=== PATIENT | female | born 1990 | race Caucasian/White ===

== ENCOUNTER 2017-07-04 10:09 | Observation (INO) | payer OTHER, SELFPAY ==
[2017-07-04 10:25] VITALS: BP 129/79; PULSE 71; TEMP 37.2; O2SAT 100
[2017-07-04 10:51] LABS: Add Manual Diff / Slide Review NO; Basophils Percent Auto 0.6 % (0-2); Eosinophils Percent Auto 5.2 % (2-4); Hematocrit 35.9 % (36-46); Hemoglobin 11.9 g/dL (12.0-16.0); Lymphocytes Percent Auto 32.9 % (25-40); Mean Corpuscular HGB Conc 33.2 % (30-36); Mean Corpuscular Hemoglobin 27.2 PG (26-34); Mean Corpuscular Volume 81.8 fL (80-100); Monocytes Percent Auto 9.4 % (3-14); Neutrophils Absolute Auto 2600 /uL (3000-5900); Neutrophils Percent Auto 51.9 % (50-75); Platelet Count 397 X10^3/uL (150-400); Red Blood Cell Count 4.39 X10^6/uL (4.0-5.2); Red Cell Distribution Width 14.8 % (11.6-14.8)
[2017-07-04 11:02] LABS: Aspartate Aminotransferase 43 IU/L (14-36); BUN Creatinine Ratio 12.9 (6-22); Blood Urea Nitrogen 9 mg/dL (7-17); Estimated Glomerular Filt Rate > 60.0 mL/min (>60); Uric Acid 7.1 mg/dL (2.5-6.2)
[2017-07-04 13:45] VITALS: BP 130/81; PULSE 65; RESP 16; TEMP 37; O2SAT 100
[2017-07-04 15:25] VITALS: BP 119/87; PULSE 70; TEMP 37; O2SAT 100
--- NOTE | 2017-07-04 17:04 | PC.NURSE ---
1400 Dr. Gallardo rounded on patient for spinal headache. Recommended fiorcet. Patient declined blood patch during his round.
--- NOTE | 2017-07-04 17:14 | PM.CN ---
History of Present Illness Date Patient Seen: 07/04/17 Time Patient Seen: 14:00 Chief complaint: OBSERVATION Reason for consult: Postural Headache Narrative: Pt is a 26 y/o who is s/p c section x one week with a postural headache. C section was performed under a Spinal anesthetic. She is also being worked up for a post- pre-eclempsia condition which may also contributed to a the clinical picture but the history is definitely consistent with a post dural puncture headache. [facility] Surgical History Status post delivery (08/07/11) Family History Father Age: 50 Hypertension High cholesterol Mother Age: 55 Skin cancer Grandmother Age: 71 Diabetes mellitus Social History household members: spouse and children Smoking Status: Never smoker alcohol intake: never Meds Home Medications Medication Instructions Recorded Confirmed Type vit-iron fum-folic ac 1 cap PO QDAY #0 02/10/17 06/26/17 History [Mynatal] levothyroxine [Synthroid] 0.2 mg OR Q DAY #30 tab 04/21/17 06/26/17 Rx morphine 15 mg PO Q3-4H PRN #30 tab 06/28/17 Rx Allergies Allergy/AdvReac Type Severity Reaction Status Date / Time tramadol [TRAMADOL] Allergy Severe anaphylaxis Verified 06/08/17 00:24 amoxicillin [From AUGMENTIN] Allergy Mild itching Verified 06/08/17 00:24 clavulanic acid Allergy Mild itching Verified 06/08/17 00:24 [From AUGMENTIN] Sulfa (Sulfonamide Allergy Mild itching Verified 06/08/17 00:24 Antibiotics) [SULFA (SULFONAMIDE ANTIBIOTICS)] hydrocodone [HYDROCODONE] AdvReac Mild nausea Verified 06/08/17 00:24 oxycodone [OXYCODONE] AdvReac Mild nausea Verified 06/08/17 00:24 Review of Systems Review of Systems grossly normal neuro exam. CN's wnl. AAOx3 No motor deficits. Pain is sometimes worsened when turning head side to side. Worse upright but improves laying flat. All systems reviewed & are unremarkable except as noted in HPI and below Exam Vital Signs (past 8 hours): Vital Signs - 8 hr 07/04/17 10:25 07/04/17 15:25 Temperature 99.0 F 98.6 F Pulse Rate 71 70 Blood Pressure 129/79 H 119/87 H Pulse Oximetry 100 100 Pulse Oximetry 100 Const General: cooperative Orientation: alert and oriented x3 Objective Labs Result Diagrams: 07/04/17 10:35 07/04/17 10:30 Labs: Laboratory Results - last 24 hr 07/04/17 07/04/17 10:30 10:35 WBC 5.0 RBC 4.39 Hgb 11.9 L Hct 35.9 L MCV 81.8 MCH 27.2 MCHC 33.2 RDW 14.8 Plt Count 397 Neut % (Auto) 51.9 Lymph % (Auto) 32.9 [place] % (Auto) 9.4 Eos % (Auto) 5.2 H Baso % (Auto) 0.6 Neut # (Auto) 2600 L BUN 9 Creatinine 0.70 Estimated GFR > 60.0 BUN/Creatinine Ratio 12.9 Uric Acid 7.1 H AST 43 H Assessment & Plan Plan: Plan: We discussed that she does indeed have symptoms of a post dural puncture headache and that untreated will likely resolve on its own. She can try a course of Fiorcet. She didn't seem motivated to try an epidural blood patch at this time but I explained what that was and the success rate of the procedure. She is being admitted overnight during her work up for pre-eclempsia and will try Fiorcet overnight.
--- NOTE | 2017-07-04 17:23 | P.CONS_ITS ---
History of Present Illness Date Patient Seen: 07/04/17 Time Patient Seen: 14:00 Chief complaint: OBSERVATION Reason for consult: Postural Headache Narrative: Pt is a 26 y/o who is s/p c section x one week with a postural headache. C section was performed under a Spinal anesthetic. She is also being worked up for a post- pre-eclempsia condition which may also contributed to a the clinical picture but the history is definitely consistent with a post dural puncture headache. [facility] Surgical History Status post delivery (08/07/11) Family History Father Age: 50 Hypertension High cholesterol Mother Age: 55 Skin cancer Grandmother Age: 71 Diabetes mellitus Social History household members: spouse and children Smoking Status: Never smoker alcohol intake: never Meds Home Medications Medication Instructions Recorded Confirmed Type vit-iron fum-folic ac 1 cap PO QDAY #0 02/10/17 06/26/17 History [Mynatal] levothyroxine [Synthroid] 0.2 mg OR Q DAY #30 tab 04/21/17 06/26/17 Rx morphine 15 mg PO Q3-4H PRN #30 tab 06/28/17 Rx Allergies Allergy/AdvReac Type Severity Reaction Status Date / Time tramadol [TRAMADOL] Allergy Severe anaphylaxis Verified 06/08/17 00:24 amoxicillin [From AUGMENTIN] Allergy Mild itching Verified 06/08/17 00:24 clavulanic acid Allergy Mild itching Verified 06/08/17 00:24 [From AUGMENTIN] Sulfa (Sulfonamide Allergy Mild itching Verified 06/08/17 00:24 Antibiotics) [SULFA (SULFONAMIDE ANTIBIOTICS)] hydrocodone [HYDROCODONE] AdvReac Mild nausea Verified 06/08/17 00:24 oxycodone [OXYCODONE] AdvReac Mild nausea Verified 06/08/17 00:24 Review of Systems Review of Systems grossly normal neuro exam. CN's wnl. AAOx3 No motor deficits. Pain is sometimes worsened when turning head side to side. Worse upright but improves laying flat. All systems reviewed & are unremarkable except as noted in HPI and below Exam Vital Signs (past 8 hours): Vital Signs - 8 hr 3 07/04/17 10:25 07/04/17 15:25 Temperature 99.0 F 98.6 F Pulse Rate 71 70 Blood Pressure 129/79 H 119/87 H Pulse Oximetry 100 100 Pulse Oximetry 100 Const General: cooperative Orientation: alert and oriented x3 Objective Labs Result Diagrams: 07/04/17 10:35 07/04/17 10:30 Labs: Laboratory Results - last 24 hr 07/04/17 07/04/17 10:30 10:35 WBC 5.0 RBC 4.39 Hgb 11.9 L Hct 35.9 L MCV 81.8 MCH 27.2 MCHC 33.2 RDW 14.8 Plt Count 397 Neut % (Auto) 51.9 Lymph % (Auto) 32.9 [place] % (Auto) 9.4 Eos % (Auto) 5.2 H Baso % (Auto) 0.6 Neut # (Auto) 2600 L BUN 9 Creatinine 0.70 Estimated GFR > 60.0 BUN/Creatinine Ratio 12.9 Uric Acid 7.1 H AST 43 H Assessment & Plan Plan: Plan: We discussed that she does indeed have symptoms of a post dural puncture headache and that untreated will likely resolve on its own. She can try a course of Fiorcet. She didn't seem motivated to try an epidural blood patch at this time but I explained what that was and the success rate of the procedure. She is being admitted overnight during her work up for pre-eclempsia and will try Fiorcet overnight.
[2017-07-04 19:38] VITALS: BP 128/73; PULSE 60; RESP 18; TEMP 37.2; O2SAT 98
[2017-07-04] MEDS: BUTALB/APAP/CAFFEINE 50/325/40 TABLET 1 EACH PO (19:56)
[2017-07-05 00:12] VITALS: BP 98/61; PULSE 53; RESP 16; TEMP 36.7; O2SAT 98
[2017-07-05] MEDS: BUTALB/APAP/CAFFEINE 50/325/40 TABLET 1 EACH PO (04:09)
[2017-07-05 04:11] VITALS: BP 124/85; PULSE 69; RESP 15; TEMP 36.8
--- NOTE | 2017-07-05 04:20 | PC.NURSE ---
Patient was sleeping when entered room, Holding infant in her arms, pain meds given, patient going back to sleep
[2017-07-05 06:58] LABS: Add Manual Diff / Slide Review NO; Basophils Percent Auto 1.1 % (0-2); Eosinophils Percent Auto 4.3 % (2-4); Hematocrit 35.8 % (36-46); Hemoglobin 11.8 g/dL (12.0-16.0); Lymphocytes Percent Auto 29.9 % (25-40); Mean Corpuscular HGB Conc 33.1 % (30-36); Mean Corpuscular Hemoglobin 27.2 PG (26-34); Mean Corpuscular Volume 82.2 fL (80-100); Monocytes Percent Auto 8.3 % (3-14); Neutrophils Absolute Auto 2900 /uL (3000-5900); Neutrophils Percent Auto 56.4 % (50-75); Platelet Count 397 X10^3/uL (150-400); Red Blood Cell Count 4.35 X10^6/uL (4.0-5.2); Red Cell Distribution Width 14.3 % (11.6-14.8); White Blood Cell Count 5.1 X10^3/uL (4.5-11.0)
[2017-07-05 07:04] LABS: Alanine Aminotransferase 47 IU/L (9-52); Aspartate Aminotransferase 32 IU/L (14-36); Uric Acid 6.5 mg/dL (2.5-6.2)
[2017-07-05 07:47] VITALS: BP 128/82; PULSE 68; RESP 16; TEMP 37; O2SAT 98
[2017-07-05] MEDS: LEVOTHYROXINE 100 MCG TABLET 200 MCG PO (08:22)
[2017-07-05 10:23] VITALS: BP 128/82; PULSE 68; RESP 16; TEMP 37
== END 2017-07-05 12:08 | disposition home or self-care (01) ==
PROVIDERS: Admitting Provider Obstetrics & Gynecology; PCP Obstetrics & Gynecology; Visit Provider Obstetrics & Gynecology
DX: G97.1 Other reaction to spinal and lumbar puncture (principal); R51 Headache
CPT/HCPCS: 36415; 84450; 84460; 84550; 85025; 85049; G0378; G0379

== ENCOUNTER 2017-08-23 14:32 | Emergency (ER) | payer OTHER, SELFPAY ==
[2017-08-23 14:35] VITALS: BP 139/89; PULSE 63; RESP 14; TEMP 36.2; O2SAT 99; BMI 32.4
[2017-08-23 16:59] VITALS: BP 134/75; PULSE 57; RESP 16; O2SAT 98
--- NOTE | 2017-08-23 17:01 | ED.GENADULT ---
HPI - General Adult <JAMES Gama - Last Filed: 08/23/17 21:47> General Chief complaint: Hypertension Stated complaint: high blood pressure and bloody nose Time Seen by Provider: 08/23/17 17:00 History of Present Illness HPI narrative: A 27-year-old female here for complaint of having elevated blood pressure over the past couple of weeks. She was seen by her primary care provider for this a couple weeks ago and and was requested that she monitor her blood pressure and follow back up with primary care provider. She reports that her blood pressure has been on and off elevated over the past couple of weeks. She states she has had on and off headaches during the same timeframe. No fevers no chills. She states she had nosebleed earlier today that lasted about 10 min power this is fully resolved. She denies any stressors or relievers of the headache. She is currently 7 weeks she denies any vaginal discharge or bleeding. She denies any chest pain or shortness of breath. No abdominal pain No other concerns or complaints at this time. Related Data Home Medications Medication Instructions Recorded Confirmed vit-iron fum-folic ac 1 cap PO QDAY #0 02/10/17 08/08/17 [Mynatal] Previous Rx's Medication Instructions Recorded levothyroxine [Synthroid] 0.2 mg OR Q DAY #30 tab 04/21/17 Allergies Allergy/AdvReac Type Severity Reaction Status Date / Time tramadol [TRAMADOL] Allergy Severe anaphylaxis Verified 08/23/17 14:35 amoxicillin [From AUGMENTIN] Allergy Mild itching Verified 08/23/17 14:35 clavulanic acid Allergy Mild itching Verified 08/23/17 14:35 [From AUGMENTIN] Sulfa (Sulfonamide Allergy Mild itching Verified 08/23/17 14:35 Antibiotics) [SULFA (SULFONAMIDE ANTIBIOTICS)] hydrocodone [HYDROCODONE] AdvReac Mild nausea Verified 08/23/17 14:35 oxycodone [OXYCODONE] AdvReac Mild nausea Verified 08/23/17 14:35 Review of Systems <JAMES Gama - Last Filed: 08/23/17 21:47> Constitutional Denies chills, Denies fatigue, Denies fever(s), Reports headache(s), Denies lethargy and Denies weakness Eyes Denies change in vision, Denies eye discharge, Denies irritation and Denies loss of vision ENT Ears, Nose, Mouth, and Throat: Reports headache(s) and Reports epistaxis Cardiovascular Denies dyspnea and Denies dyspnea on exertion Comments: Elevated blood pressure Respiratory Denies cough, Denies dyspnea, Denies dyspnea on exertion and Denies wheezing Gastrointestinal Gastrointestinal: Denies abdominal pain, Denies change in bowel habits, Denies diarrhea, Denies nausea and Denies vomiting Genitourinary Denies hematuria, Denies flank pain, Denies urinary incontinence and Denies urinary urgency Musculoskeletal Denies back pain, Denies muscle weakness, Denies numbness and Denies tingling Integumentary/Breasts Denies pruritus, Denies erythema, Denies rash and Denies wounds Neurologic Reports headache(s), Denies loss of vision, Denies numbness, Denies tingling and Denies weakness Endocrine Denies fatigue and Denies flushing Hematologic/Lymphatic Denies easy bruising Allergic/Immunologic Denies wheezing Exam <JAMES Gama - Last Filed: 08/23/17 21:47> Initial Vital Signs Initial Vital Signs: Vital Signs Temperature 97.1 F L 08/23/17 14:35 Pulse Rate 63 08/23/17 14:35 Respiratory Rate 14 08/23/17 14:35 Blood Pressure 139/89 H 08/23/17 14:35 Pulse Oximetry 99 08/23/17 14:35 Const General: cooperative and well developed Nutritional Appearance: well nourished Orientation: alert, awake, oriented x3 and not confused HENMS Ears: TM's normal bilaterally Nose: nasal discharge Face and sinus: sinus tenderness and dry mucous membranes Mouth: oral mucosae normal and moist mucous membranes Eyes Conjunctivae: conjunctivae normal Sclera: sclerae normal Pupils: PERRL EOM: EOM intact bilaterally Resp Effort & Inspection: normal respiratory effort, able to speak in complete sentences, no respiratory distress and no use of accessory muscles Auscultation: clear to auscultation bilaterally, no rales, no rhonchi and no wheezes Cardio Rate: regular rate Rhythm: regular rhythm Heart Sounds: no click, no gallops, no murmurs and no rubs GI Inspection: non-distended Palpation: soft, no hepatosplenomegaly, No guarding, No pulsatile mass and No tender Auscultation: normal bowel sounds Skin General: no rashes or lesions noted, No jaundice and No petechiae Neuro General: alert, oriented x3, gait normal and no focal motor deficits Speech: speech normal <Oumar Staples DO - Last Filed: 08/24/17 03:21> Initial Vital Signs Initial Vital Signs: Vital Signs Temperature 97.1 F L 08/23/17 14:35 Pulse Rate 63 08/23/17 14:35 Respiratory Rate 14 08/23/17 14:35 Blood Pressure 139/89 H 08/23/17 14:35 Pulse Oximetry 99 08/23/17 14:35 Course <JAMES Gama - Last Filed: 08/23/17 21:47> Orders Ordered: ED Orders 08/23/17 18:25 Complete Blood Count AUTO DIFF Stat Comprehensive Metabolic Panel Stat Troponin I Stat Vital Signs - 8 hr 08/23/17 19:27 Pulse Rate 60 Respiratory Rate 12 Blood Pressure [Left Arm] 121/71 H Pulse Oximetry 100 <Oumar Staples DO - Last Filed: 08/24/17 03:21> Orders Ordered: ED Orders 08/23/17 18:25 Complete Blood Count AUTO DIFF Stat Comprehensive Metabolic Panel Stat Troponin I Stat Vital Signs - 8 hr 08/23/17 19:27 Pulse Rate 60 Respiratory Rate 12 Blood Pressure [Left Arm] 121/71 H Pulse Oximetry 100 Medical Decision Making <JAMES Gama - Last Filed: 08/23/17 21:47> MDM Narrative Medical decision making narrative: CT of the head was obtained and was negative for any acute findings. CBC and Chem panel were obtained and were negative for any signs of organ damage. Troponin was obtained and was also negative. Patient's blood pressure she had no return of nosebleed while she was here. Will have patient follow up with primary care provider for further evaluation. Patient encouraged to maintain log of her blood pressures in the meantime before she follows up with primary care and brain results with her. For any worsening symptoms return to the emergency room. [id number] Tylenol or Motrin as needed for any headache. Lab Data Result diagrams: 08/23/17 18:25 08/23/17 18:25 Lab Results 08/23/17 08/23/17 Range/Units 18:25 18:25 WBC 5.6 (4.5-11.0) X10^3/uL RBC 4.44 (4.0-5.2) X10^6/uL Hgb 11.9 L (12.0-16.0) g/dL Hct 36.2 (36-46) % MCV 81.5 (80-100) fL MCH 26.9 (26-34) PG MCHC 33.0 (30-36) % RDW 14.6 (11.6-14.8) % Plt Count 321 (150-400) X10^3/uL Neut % (Auto) 48.6 L (50-75) % Lymph % (Auto) 37.5 (25-40) % [place] % (Auto) 8.8 (3-14) % Eos % (Auto) 4.3 H (2-4) % Baso % (Auto) 0.8 (0-2) % Neut # (Auto) 2700 L (2949-7821) /uL Sodium 141 (137-145) mmol/L Potassium 3.8 (3.4-5.1) mmol/L Chloride 103 (98-107) mmol/L Carbon Dioxide 31 (22-32) mmol/L BUN 13 (7-17) mg/dL Creatinine 0.90 (0.52-1.04) mg/dL Estimated GFR > 60.0 (>60) mL/min BUN/Creatinine Ratio 14.4 (6-22) Glucose 92 (70-100) mg/dL Calcium 9.2 (8.4-10.2) mg/dL Total Bilirubin 0.3 (0.2-1.3) mg/dL AST 19 (14-36) IU/L ALT 23 (9-52) IU/L Alkaline Phosphatase 108 (38-126) U/L Troponin I < 0.012 (0.01-0.034) ng/mL Total Protein 6.9 (6.3-8.2) g/dL Albumin 4.1 (3.5-5.0) g/dL Globulin 2.8 (1.7-4.1) g/dL Albumin/Globulin Ratio 1.5 (1.0-2.8) Imaging Data CT scan - head: Radiologist's impression: PROCEDURE: CT HEAD/BRAIN WO CON INDICATIONS: Elevated blood pressure and headache TECHNIQUE: Noncontrast 4.5 mm thick angled axial sections acquired from the foramen magnum to the vertex, with coronal and sagittal reformats. For radiation dose reduction, the following was used: automated exposure control, adjustment of mA and/or kV according to patient size. COMPARISON: None. FINDINGS: Image quality: Excellent. CSF spaces: Basal cisterns are patent. No extra-axial fluid collections. Ventricles are normal in size and shape. Brain: No midline shift. No intracranial masses or hemorrhage. [place]-white matter interface is normal. Skull and face: Calvarium and visualized facial bones are intact, without suspicious lesions. Sinuses: Visualized sinuses and mastoids are clear. IMPRESSION: No acute intracranial abnormality. Dictated by: Amarjit Rivera M.D. on 08/23/2017 at 18:37 Approved by: Amarjit Rivera M.D. on 08/23/2017 at 18:38 <Oumar Staples DO - Last Filed: 08/24/17 03:21> Lab Data Lab Results 08/23/17 08/23/17 Range/Units 18:25 18:25 WBC 5.6 (4.5-11.0) X10^3/uL RBC 4.44 (4.0-5.2) X10^6/uL Hgb 11.9 L (12.0-16.0) g/dL Hct 36.2 (36-46) % MCV 81.5 (80-100) fL MCH 26.9 (26-34) PG MCHC 33.0 (30-36) % RDW 14.6 (11.6-14.8) % Plt Count 321 (150-400) X10^3/uL Neut % (Auto) 48.6 L (50-75) % Lymph % (Auto) 37.5 (25-40) % [place] % (Auto) 8.8 (3-14) % Eos % (Auto) 4.3 H (2-4) % Baso % (Auto) 0.8 (0-2) % Neut # (Auto) 2700 L (2794-3466) /uL Sodium 141 (137-145) mmol/L Potassium 3.8 (3.4-5.1) mmol/L Chloride 103 (98-107) mmol/L Carbon Dioxide 31 (22-32) mmol/L BUN 13 (7-17) mg/dL Creatinine 0.90 (0.52-1.04) mg/dL Estimated GFR > 60.0 (>60) mL/min BUN/Creatinine Ratio 14.4 (6-22) Glucose 92 (70-100) mg/dL Calcium 9.2 (8.4-10.2) mg/dL Total Bilirubin 0.3 (0.2-1.3) mg/dL AST 19 (14-36) IU/L ALT 23 (9-52) IU/L Alkaline Phosphatase 108 (38-126) U/L Troponin I < 0.012 (0.01-0.034) ng/mL Total Protein 6.9 (6.3-8.2) g/dL Albumin 4.1 (3.5-5.0) g/dL Globulin 2.8 (1.7-4.1) g/dL Albumin/Globulin Ratio 1.5 (1.0-2.8) Discharge Plan Departure Patient Disposition: Home, Self-Care Clinical Impression: Elevated blood pressure reading, Acute headache Discharge Date/Time: 08/23/17 19:31 Interventions: ED Discharge Assessment Last Done: 08/23/17 19:30 Instructions: DI for Headache Activity Restrictions/Additional Instructions: Imaging and laboratory results today were unremarkable. Blood pressure at times was mildly elevated in the emergency room today. Recommend continuing to monitor your blood pressure readings and follow up with her primary care provider for further evaluation and treatment. Use [id number] Tylenol and Motrin as needed for any headache. For any worsening symptoms return to the emergency room. Prescriptions: No Action vit-iron fum-folic ac [Mynatal] 1 EACH capsule 1 cap PO QDAY Qty: 0 RF: 0 levothyroxine [Synthroid] 200 MCG tablet 0.2 mg OR Q DAY Qty: 30 RF: 3 Referrals: Rhoda Bentley MD [Primary Care Provider] - Lauren Barnett DO [Physician] - <Oumar Staples DO - Last Filed: 08/24/17 03:21> Cosign ED Attending Jamieature Attestation: I was immediately available in the department for consultation. Documentation has been reviewed. I agree with assessment and plan.
[2017-08-23 17:05] VITALS: BP 116/53; PULSE 73; RESP 15; O2SAT 100
--- NOTE | 2017-08-23 17:45 | DI.CT.S_ITS ---
PROCEDURE: CT HEAD/BRAIN WO CON INDICATIONS: Elevated blood pressure and headache TECHNIQUE: Noncontrast 4.5 mm thick angled axial sections acquired from the foramen magnum to the vertex, with coronal and sagittal reformats. For radiation dose reduction, the following was used: automated exposure control, adjustment of mA and/or kV according to patient size. COMPARISON: None. FINDINGS: Image quality: Excellent. CSF spaces: Basal cisterns are patent. No extra-axial fluid collections. Ventricles are normal in size and shape. Brain: No midline shift. No intracranial masses or hemorrhage. [place]-white matter interface is normal. Skull and face: Calvarium and visualized facial bones are intact, without suspicious lesions. Sinuses: Visualized sinuses and mastoids are clear. IMPRESSION: No acute intracranial abnormality. Dictated by: Amarjit Rivera M.D. on 08/23/2017 at 18:37 Approved by: Amarjit Rivera M.D. on 08/23/2017 at 18:38
[2017-08-23 18:40] LABS: Add Manual Diff / Slide Review NO; Basophils Percent Auto 0.8 % (0-2); Eosinophils Percent Auto 4.3 % (2-4); Hematocrit 36.2 % (36-46); Hemoglobin 11.9 g/dL (12.0-16.0); Lymphocytes Percent Auto 37.5 % (25-40); Mean Corpuscular Hemoglobin 26.9 PG (26-34); Mean Corpuscular Volume 81.5 fL (80-100); Monocytes Percent Auto 8.8 % (3-14); Neutrophils Absolute Auto 2700 /uL (3000-5900); Neutrophils Percent Auto 48.6 % (50-75); Platelet Count 321 X10^3/uL (150-400); Red Blood Cell Count 4.44 X10^6/uL (4.0-5.2); Red Cell Distribution Width 14.6 % (11.6-14.8); White Blood Cell Count 5.6 X10^3/uL (4.5-11.0)
[2017-08-23 18:51] LABS: Alanine Aminotransferase 23 IU/L (9-52); Albumin 4.1 g/dL (3.5-5.0); Albumin Globulin Ratio 1.5 (1.0-2.8); Alkaline Phosphatase 108 U/L (38-126); Aspartate Aminotransferase 19 IU/L (14-36); BUN Creatinine Ratio 14.4 (6-22); Bilirubin Total 0.3 mg/dL (0.2-1.3); Blood Urea Nitrogen 13 mg/dL (7-17); Calcium 9.2 mg/dL (8.4-10.2); Carbon Dioxide 31 mmol/L (22-32); Chloride 103 mmol/L (98-107); Estimated Glomerular Filt Rate > 60.0 mL/min (>60); Globulin 2.8 g/dL (1.7-4.1); Glucose 92 mg/dL (70-100); HEMOLYSIS < 15 (0-50); Potassium 3.8 mmol/L (3.4-5.1); Sodium 141 mmol/L (137-145); Total Protein 6.9 g/dL (6.3-8.2)
[2017-08-23 19:04] LABS: Troponin I < 0.012 ng/mL (0.01-0.034)
[2017-08-23 19:27] VITALS: BP 121/71; PULSE 60; RESP 12; O2SAT 100
== END 2017-08-23 19:31 | disposition home or self-care (01) ==
PROVIDERS: Emergency Provider Nurse Practitioner Family; PCP Obstetrics & Gynecology
DX: R03.0 Elevated blood-pressure reading, without diagnosis of hypertension (principal); R51 Headache
CPT/HCPCS: 70450; 80053; 81003; 81025; 84484; 85025; 99283; 99284

== ENCOUNTER → 2017-08-25 11:31 | Outpatient (CLI) | payer OTHER, SELFPAY ==
[2017-08-25 12:53] LABS: Free T3, Triiodothyronine Free 4.42 pg/mL (2.77-5.27); Free T4, Direct Thyroxine 2.08 ng/dL (0.78-2.19)
[2017-08-25 13:06] LABS: Thyroid Stimulating Hormone < 0.02 uIU/mL (0.47-4.68)
== END ==
PROVIDERS: PCP Obstetrics & Gynecology; Visit Provider Family Medicine
DX: E06.3 Autoimmune thyroiditis (principal)
CPT/HCPCS: 36415; 84439; 84443; 84481

== ENCOUNTER → 2017-11-29 17:24 | Outpatient (CLI) | payer OTHER, SELFPAY ==
[2017-11-29 18:55] LABS: TSH w/ Reflex to FT4 < 0.02 uIU/mL (0.47-4.68)
[2017-11-29 19:37] LABS: Free T4, Direct Thyroxine 2.12 ng/dL (0.78-2.19)
== END ==
PROVIDERS: PCP Family Medicine; Visit Provider Family Medicine
DX: E06.3 Autoimmune thyroiditis (principal)
CPT/HCPCS: 36415; 84439; 84443

== ENCOUNTER 2017-12-01 17:12 | Emergency (ER) | payer OTHER, SELFPAY ==
[2017-12-01 17:20] VITALS: BP 134/93; PULSE 85; RESP 18; TEMP 36.9; O2SAT 100; BMI 31.6
[2017-12-01 18:55] LABS: Add Manual Diff / Slide Review NO; Basophils Percent Auto 1.2 % (0-2); Hematocrit 41.3 % (36-46); Hemoglobin 13.7 g/dL (12.0-16.0); Mean Corpuscular HGB Conc 33.1 % (30-36); Mean Corpuscular Hemoglobin 27.6 PG (26-34); Mean Corpuscular Volume 83.5 fL (80-100); Monocytes Percent Auto 7.6 % (3-14); Neutrophils Absolute Auto 2900 /uL (3000-5900); Neutrophils Percent Auto 53.2 % (50-75); Platelet Count 318 X10^3/uL (150-400); Red Blood Cell Count 4.95 X10^6/uL (4.0-5.2); Red Cell Distribution Width 13.7 % (11.6-14.8); White Blood Cell Count 5.4 X10^3/uL (4.5-11.0)
[2017-12-01 19:08] LABS: BUN Creatinine Ratio 17.1 (6-22); Blood Urea Nitrogen 12 mg/dL (7-17); Calcium 9.6 mg/dL (8.4-10.2); Carbon Dioxide 24 mmol/L (22-32); Chloride 106 mmol/L (98-107); Estimated Glomerular Filt Rate > 60.0 mL/min (>60); Glucose 95 mg/dL (70-100); HEMOLYSIS < 15 (0-50); Magnesium 1.9 mg/dL (1.6-2.3); Potassium 3.9 mmol/L (3.4-5.1); Sodium 143 mmol/L (137-145)
[2017-12-01 19:43] LABS: Thyroid Stimulating Hormone < 0.02 uIU/mL (0.47-4.68)
[2017-12-01 20:37] VITALS: BP 122/82; PULSE 68; RESP 15; O2SAT 100
--- NOTE | 2017-12-02 01:46 | ED_ITS ---
HPI - Weakness General Chief complaint: Weakness Stated complaint: BLOOD PRESSURE IS ALL OVER THE PLACE Time Seen by Provider: 12/01/17 18:31 Source: patient and family Mode of arrival: ambulatory Limitations: no limitations History of Present Illness HPI Narrative: 27-year-old nonsmoker who presents with her infant and mother for evaluation of fluctuating blood pressures. The patient developed me post delivery preeclampsia about 5 months ago and has had labile blood pressures ever since. Sometimes her blood pressure spikes into the 140s or so and at other times it will drop precipitously low. She he has episodes of feeling unwell and has had some headaches and the weakness or lightheadedness but very nonspecific. She has seen her PCP and the ED on multiple occasions. She has no focal findings. She denies any change in medications for her Karen's MD Complaint: generalized weakness Onset (ago): month(s) Duration: intermittent Location: generalized Migration: none Relieving factors: none Exacerbating factors: none Associated symptoms: denies other symptoms Related Data Home Medications Medication Instructions Recorded Confirmed vit-iron fum-folic ac 1 cap PO QDAY #0 02/10/17 08/25/17 [Mynatal] Previous Rx's Medication Instructions Recorded levothyroxine 175 mcg tablet 175 mcg PO DAILY #90 tab 08/25/17 Allergies Allergy/AdvReac Type Severity Reaction Status Date / Time tramadol [TRAMADOL] Allergy Severe anaphylaxis Verified 12/01/17 17:25 amoxicillin [From AUGMENTIN] Allergy Mild itching Verified 12/01/17 17:25 clavulanic acid Allergy Mild itching Verified 12/01/17 17:25 [From AUGMENTIN] Sulfa (Sulfonamide Allergy Mild itching Verified 12/01/17 17:25 Antibiotics) [SULFA (SULFONAMIDE ANTIBIOTICS)] hydrocodone [HYDROCODONE] AdvReac Mild nausea Verified 12/01/17 17:25 oxycodone [OXYCODONE] AdvReac Mild nausea Verified 12/01/17 17:25 Review of Systems Review of Systems All systems reviewed & are unremarkable except as noted in HPI and below Constitutional Denies chills, Denies fever(s), Reports headache(s), Denies lethargy and Reports weakness Eyes Denies change in vision, Denies eye discharge, Denies irritation and Denies loss of vision ENT Ears, Nose, Mouth, and Throat: Denies change in voice, Reports headache(s), Denies neck pain and Denies sore throat Cardiovascular Denies chest pain, Denies irregular heart rhythm, Denies lightheadedness, Denies palpitations, Denies dyspnea, Denies dyspnea on exertion and Denies orthopnea Respiratory Denies cough, Denies dyspnea, Denies dyspnea on exertion and Denies wheezing Gastrointestinal Gastrointestinal: Denies abdominal pain, Denies change in bowel habits, Denies diarrhea, Denies nausea and Denies vomiting Genitourinary Denies hematuria, Denies flank pain, Denies urinary incontinence and Denies urinary urgency Musculoskeletal Denies neck pain Integumentary/Breasts Denies pruritus, Denies erythema, Denies rash and Denies wounds Neurologic Denies confusion, Reports headache(s), Denies loss of vision and Reports weakness Psychiatric Denies anxiety, Denies confusion, Denies depression, Denies homicidal ideation and Denies suicidal ideation Endocrine Denies palpitations Hematologic/Lymphatic Denies easy bruising Allergic/Immunologic Denies wheezing [facility] Medical History Celiac disease/sprue (Chronic 2011) Hypothyroidism (Chronic 2005) Surgical History Anesthesia complication (Resolved) Status post delivery (Resolved 08/07/11) Family History Father Age: 51 Hypertension High cholesterol Mother Age: 56 Skin cancer Grandmother Age: 72 Diabetes mellitus Social History household members: spouse and children (daughter) Smoking Status: Never smoker alcohol intake: never Exam Narrative Exam Narrative: GENERAL: This is a well-nourished, well-developed patient, in mild distress. HEAD: Atraumatic. Normocephalic. No temporal or scalp tenderness. EYES: Pupils equal round and reactive. Extraocular motions intact. No scleral icterus. No injection or drainage. ENT: Nose without bleeding, purulent drainage or septal hematoma. Throat without erythema, tonsillar hypertrophy or exudate. Uvula midline. Airway patent. NECK: Trachea midline. No JVD or lymphadenopathy. Supple, nontender, no meningeal signs. CARDIOVASCULAR: Regular rate and rhythm without murmurs, gallops, or rubs. RESPIRATORY: Clear to auscultation. Breath sounds equal bilaterally. No wheezes , rales, or rhonchi. GASTROINTESTINAL: Abdomen soft, non-tender, nondistended. No hepato-splenomegaly , or palpable masses. No guarding. EXTREMITIES: No clubbing, cyanosis, or edema. No joint tenderness, effusion, or edema noted. BACK: Nontender without deformity or crepitance. No flank tenderness. NEURO: AOx3. SKIN: No rash or erythema. Initial Vital Signs Initial Vital Signs: Vital Signs Temperature 98.4 F 12/01/17 17:20 Pulse Rate 85 12/01/17 17:20 Respiratory Rate 18 12/01/17 17:20 Blood Pressure 134/93 H 12/01/17 17:20 Pulse Oximetry 100 12/01/17 17:20 Course Orders Ordered: ED Orders 12/01/17 18:48 EKG-12 Lead Stat 12/01/17 18:51 Basic Metabolic Panel Stat Complete Blood Count AUTO DIFF Stat Magnesium Stat Thyroid Stimulating Hormone Stat Vital Signs - 8 hr 12/01/17 20:37 Pulse Rate 68 Respiratory Rate 15 Blood Pressure 122/82 Pulse Oximetry 100 MDM - Weakness Medical Records Attestation: I reviewed the patient's medical records. Lab Data Attestation: I reviewed the patient's lab results. Result diagrams: 12/01/17 18:51 12/01/17 18:51 Lab Results 12/01/17 12/01/17 12/01/17 Range/Units 18:51 18:51 18:51 WBC 5.4 (4.5-11.0) X10^3/uL RBC 4.95 (4.0-5.2) X10^6/uL Hgb 13.7 (12.0-16.0) g/dL Hct 41.3 (36-46) % MCV 83.5 (80-100) fL MCH 27.6 (26-34) PG MCHC 33.1 (30-36) % RDW 13.7 (11.6-14.8) % Plt Count 318 (150-400) X10^3/uL Neut % (Auto) 53.2 (50-75) % Lymph % (Auto) 34.0 (25-40) % [place] % (Auto) 7.6 (3-14) % Eos % (Auto) 4.0 (2-4) % Baso % (Auto) 1.2 (0-2) % Neut # (Auto) 2900 L (4154-0885) /uL Sodium 143 (137-145) mmol/L Potassium 3.9 (3.4-5.1) mmol/L Chloride 106 (98-107) mmol/L Carbon Dioxide 24 (22-32) mmol/L BUN 12 (7-17) mg/dL Creatinine 0.70 (0.52-1.04) mg/dL Estimated GFR > 60.0 (>60) mL/min BUN/Creatinine Ratio 17.1 (6-22) Glucose 95 (70-100) mg/dL Calcium 9.6 (8.4-10.2) mg/dL Magnesium 1.9 (1.6-2.3) mg/dL TSH < 0.02 L (0.47-4.68) uIU/mL ECG Data Attestation: I personally reviewed and interpreted this ECG as follows: Prior ECG tracings: not available for review Interpretation: EKG is normal sinus rhythm and free of any signs of ischemia or ectopy. MDM Narrative Medical decision making narrative: Patient is had wildly fluctuating blood pressures since the delivery of her 3rd child when she was diagnosed with post delivery preeclampsia. The where clearly outside of the typical definition and she actively is not hypertensive there is some thought regarding whether this is somehow still playing a role. She has a normal valuation, blood pressures and lab work here. We spoke extensively at the bedside regarding where to go from here and my recommendation was to follow up with her PCP and pursue an appointment with her renal medicine physician and possibly cardiology moving forward. She had her questions answered to her apparent satisfaction. She was given return precautions and verbalized her understanding Discharge Plan Departure Patient Disposition: Home Clinical Impression: Episode of hypertension Discharge Date/Time: 12/01/17 20:37 Interventions: ED Discharge Assessment Last Done: 12/01/17 20:37 Instructions: Essential Hypertension Activity Restrictions/Additional Instructions: *You have been diagnosed with [ episodes of hypertension ] *What to do: * continue to take medications as directed *Follow up with your primary care provider in 2-3 days, call for an appointment. Let them know you were seen in the Emergency Department and that we ask that you be seen in follow up. It would seem reasonable to have a cardiology referral at this point given the chronicity of your blood pressure troubles. *Return to ER if you should have any new, worsening or concerning symptoms Prescriptions: No Action vit-iron fum-folic ac [Mynatal] 1 EACH capsule 1 cap PO QDAY Qty: 0 RF: 0 levothyroxine 175 mcg tablet 175 mcg PO DAILY Qty: 90 RF: 0 Referrals: Pedro Fofana MD [Physician] - Lauren Barnett DO [Primary Care Provider] -
== END 2017-12-01 20:37 | disposition home or self-care (01) ==
PROVIDERS: Emergency Provider Emergency Medicine; PCP Family Medicine
DX: I10 Essential (primary) hypertension (principal)
CPT/HCPCS: 36415; 80048; 83735; 84443; 85025; 93005; 93010; 99282; 99284

== ENCOUNTER → 2018-07-03 15:45 | Outpatient (CLI) | payer OTHER, SELFPAY ==
[2018-07-03 17:25] LABS: Free T3, Triiodothyronine Free 3.27 pg/mL (2.77-5.27); Free T4, Direct Thyroxine 1.13 ng/dL (0.78-2.19)
== END ==
PROVIDERS: PCP Family Medicine; Visit Provider Family Medicine
DX: E06.3 Autoimmune thyroiditis (principal)
CPT/HCPCS: 36415; 84439; 84443; 84481

== ENCOUNTER → 2018-07-04 15:49 | Outpatient (CLI) | payer OTHER, SELFPAY ==
[2018-07-04 18:36] LABS: Bacteria Urine None Seen
[2018-07-04 18:44] LABS: Bilirubin Urine UA NEGATIVE (NEGATIVE); Color Urine UA YELLOW; Glucose Urine UA NEGATIVE (Negative); Ketones Urine UA NEGATIVE (NEGATIVE); Leukocyte Esterase Urine UA NEGATIVE (NEGATIVE); Nitrite Urine UA NEGATIVE (Negative); Occult Blood Urine UA 2+ (Negative); Protein Urine UA 1+ (Negative); Specific Gravity Urine UA >=1.030 (1.000-1.035); Urobilinogen Urine UA 0.2 E.U./dL (0.2); pH Urine UA 5.5 (4.5-8.0)
[2018-07-04 18:57] LABS: Amorphous Sediment Urine 4+; Appearance Urine UA Slightly Cloudy; Culture Indicated Urine Cult Not Indicated; RBC Urine 1-5/HPF (0-5/HPF); Squamous Epithelial Cell Urine 0-1 /HPF (0-5/HPF); WBC Urine 0-1/HPF (0-5/HPF)
== END ==
PROVIDERS: PCP Family Medicine; Visit Provider Hospitalist
DX: R30.9 Painful micturition, unspecified (principal); R35.0 Frequency of micturition
CPT/HCPCS: 81001

== ENCOUNTER → 2018-12-28 11:52 | Outpatient (CLI) | payer OTHER, SELFPAY ==
[2018-12-28 13:28] LABS: Free T3, Triiodothyronine Free 3.05 pg/mL (2.77-5.27); Free T4, Direct Thyroxine 1.22 ng/dL (0.78-2.19)
== END ==
PROVIDERS: PCP Family Medicine; Visit Provider Family Medicine
DX: E06.3 Autoimmune thyroiditis (principal)
CPT/HCPCS: 36415; 84439; 84443; 84481

== ENCOUNTER 2019-07-06 16:06 | Emergency (ER) | payer OTHER, SELFPAY ==
[2019-07-06 16:08] VITALS: BP 138/85; PULSE 99; RESP 14; TEMP 36.5; O2SAT 100; BMI 37.4
--- NOTE | 2019-07-06 16:16 | DI.RAD.S_ITS ---
PROCEDURE: XR FOOT RT MIN 3V INDICATIONS: dropped vase on foot TECHNIQUE: 3 views of the foot were acquired. COMPARISON: None. FINDINGS: Bones: No fractures or dislocations. No suspicious bony lesions. Soft tissues: No tibiotalar joint effusion. Achilles tendon appears normal. IMPRESSION: No evidence acute bony abnormality of the right foot Dictated by: Ham Casillas M.D. on 07/06/2019 at 16:05 Approved by: Ham Casillas M.D. on 07/06/2019 at 16:07
[2019-07-06] MEDS: TET,DIPH,PERTUSS(ACELL),VAC/PF 0.5 ML SYRINGE IM (16:17)
--- NOTE | 2019-07-06 16:22 | ED.WOUNDLAC ---
HPI - Wound/Laceration <RICHARD Reyna - Last Filed: 07/06/19 17:52> General Chief Complaint: Wound/Laceration Stated Complaint: Dropped vase on right foot, thinks needs stitches Time Seen by Provider: 07/06/19 16:08 Source: patient Mode of arrival: Wheelchair Limitations: no limitations History of Present Illness HPI narrative: The patient is a 28-year-old female nonsmoker with history of depression and insomnia who presents with a chief complaint of a injury to her foot. She states she dropped a heavy at least 10 lb base on her foot which broke. She is concerned about retained foreign bodies as well as the possibility of needing stitches. Her last tetanus was at least 7 years ago. Related Data Previous Rx's Medication Instructions Recorded gabapentin 300 mg capsule 300 mg PO TID #90 cap 02/23/16 levothyroxine 150 mcg capsule 150 mcg PO DAILY #60 cap 12/05/17 hydroxyzine HCl 25 mg tablet 25 mg PO QID PRN #90 tab 02/14/18 trazodone 50 mg tablet 25 mg PO BEDTIME PRN #30 tab 05/21/[address] #1 each 06/24/19 Allergies Allergy/AdvReac Type Severity Reaction Status Date / Time tramadol [TRAMADOL] Allergy Severe anaphylaxis Verified 07/06/19 16:12 amoxicillin [From AUGMENTIN] Allergy Mild itching Verified 07/06/19 16:12 clavulanic acid Allergy Mild itching Verified 07/06/19 16:12 [From AUGMENTIN] Sulfa (Sulfonamide Allergy Mild itching Verified 07/06/19 16:12 Antibiotics) [SULFA (SULFONAMIDE ANTIBIOTICS)] hydrocodone [HYDROCODONE] AdvReac Mild nausea Verified 07/06/19 16:12 oxycodone [OXYCODONE] AdvReac Mild nausea Verified 07/06/19 16:12 Review of Systems <RICHARD Reyna - Last Filed: 07/06/19 17:52> Review of Systems Narrative: GENERAL: Denies chills, fatigue, malaise, fever, sweats. HEENT: Denies sinus pain, ear pain, sore throat, difficulty swallowing, dizziness. RESPIRATORY: Denies dyspnea, cough, wheezing, hemoptysis, sputum. CARDIOVASCULAR: Denies chest pain, palpitations, orthopnea, edema, GASTROINTESTINAL: Denies nausea, vomiting, abdominal pain, diarrhea, constipation, melena. : Denies dysuria, frequency, incontinence, hematuria, urinary retention. MUSCULOSKELETAL: See HPI SKIN: See HPI NEUROLOGIC: Denies weakness, headache, numbness, change in speech, confusion, seizures, incoordination. PSYCHIATRIC: No concerning psychosocial issues. 12 point review of systems is negative except for those stated above Patient History <RICHARD Reyna - Last Filed: 07/06/19 17:52> Medical History Celiac disease/sprue (Chronic 2011) Hypothyroidism (Chronic 2005) Insomnia (Acute) Surgical History Anesthesia complication (Resolved) History of bilateral tubal ligation (Resolved) Status post delivery (Resolved 08/07/11) Family History Father Age: 52 Hypertension High cholesterol Mother Age: 57 Skin cancer Grandmother Age: 73 Diabetes mellitus Social History marital status: household members: spouse and children (daughter) housing: house pets and animals: Yes (2 dogs 1 cat) jonna/moravian: Adventism seatbelt use: always helmet use: Yes water heater temp set < 120 deg: Yes Smoking Status: Never smoker alcohol intake: never substance use type: does not use Smoking Status: Never smoker alcohol intake frequency: 0-2 drinks per day Substance Use Type: does not use Exam <RICHARD Reyna - Last Filed: 07/06/19 17:52> Narrative Exam Narrative: GENERAL: This is a well-nourished, well-developed patient, no acute distress HEAD: Atraumatic. Normocephalic. No temporal or scalp tenderness. EYES: Pupils equal round and reactive. Extraocular motions intact. No scleral icterus. No injection or drainage. ENT: Nose without bleeding, purulent drainage or septal hematoma. Throat without erythema, tonsillar hypertrophy or exudate. Uvula midline. Airway patent. NECK: Trachea midline. No JVD or lymphadenopathy. Supple, nontender, no meningeal signs. CARDIOVASCULAR: Regular rate and rhythm RESPIRATORY: No cough. No increased respiratory effort. No accessory muscle use. EXTREMITIES: Skin exam as noted. Able to flex and extend all toes right foot. Positive right pedal pulses. BACK: Nontender without deformity or crepitance. No flank tenderness. NEURO: AOx3. SKIN: Laceration through dermis noted on top of right foot. 1.5 cm long, linear, 3 mm flap laceration through dermis with no obvious muscle or tendon involvement no obvious foreign body. Oozing blood. Initial Vital Signs Initial Vital Signs: Vital Signs Temperature 97.7 F 07/06/19 16:08 Pulse Rate 99 H 07/06/19 16:08 Respiratory Rate 14 07/06/19 16:08 Blood Pressure 138/85 07/06/19 16:08 Pulse Oximetry 100 07/06/19 16:08 <Oumar Staples DO - Last Filed: 07/07/19 07:13> Initial Vital Signs Initial Vital Signs: Vital Signs Temperature 97.7 F 07/06/19 16:08 Pulse Rate 99 H 07/06/19 16:08 Respiratory Rate 14 07/06/19 16:08 Blood Pressure 138/85 07/06/19 16:08 Pulse Oximetry 100 07/06/19 16:08 Course <RICHARD Reyna - Last Filed: 07/06/19 17:52> Orders Ordered: Discontinued Medications Diphtheria/Tetanus/Acell Pertussis (Adacel) 0.5 ml IM .ONCE ONE Stop: 07/06/19 16:11 Last Admin: 07/06/19 16:17 Dose: 0.5 ml Documented by: FORD Vital Signs Vital signs: Vital Signs - 8 hr 07/06/19 16:08 Temperature 97.7 F Pulse Rate 99 H Respiratory Rate 14 Blood Pressure 138/85 Pulse Oximetry 100 <DO Cheryl Del Valle Last Filed: 07/07/19 07:13> Orders Ordered: Discontinued Medications Diphtheria/Tetanus/Acell Pertussis (Adacel) 0.5 ml IM .ONCE ONE Stop: 07/06/19 16:11 Last Admin: 07/06/19 16:17 Dose: 0.5 ml Documented by: FORD Vital Signs Vital signs: Vital Signs - 8 hr 07/06/19 16:08 Temperature 97.7 F Pulse Rate 99 H Respiratory Rate 14 Blood Pressure 138/85 Pulse Oximetry 100 [facility] - Wound/Laceration <RICHARD Reyna - Last Filed: 07/06/19 17:52> Imaging Data Extremity x-ray #1: Radiologist's Impression: [address] [place] [id number] XRay Report Signed Patient: Adrienne Quintero RMR#: [id number] : 1990Acct:[id number] Age/Sex: 28 / FDate of Service: 07/06/19 Loc: ED Accession Number: [id number] Procedure: XR foot RT min 3V Ordering Provider: Radha Ozuna PROCEDURE: XR FOOT RT MIN 3V INDICATIONS: dropped vase on foot TECHNIQUE: 3 views of the foot were acquired. COMPARISON: None. FINDINGS: Bones: No fractures or dislocations. No suspicious bony lesions. Soft tissues: No tibiotalar joint effusion. Achilles tendon appears normal. IMPRESSION: No evidence acute bony abnormality of the right foot Dictated by: Ham Casillas M.D. on 07/06/2019 at 16:05 Approved by: Ham Casillas M.D. on 07/06/2019 at 16:07 [facility] Narrative Medical decision making narrative: The patient is a 28-year-old female who presents with a chief complaint of laceration and injury to her foot after dropping a vase on it. She has a negative x-ray, her tetanus was updated, she had her wound cleansed and closed by nursing by Steri-Strips. She did not need sutures, especially given her flap. Her wound was cleansed copiously with Hibiclens. Discussed at length monitoring for signs symptoms of infection, redness, purulent drainage etcetera. Patient has no questions or concerns upon discharge and states understanding return precautions as well as follow-up care. Discharge Plan Departure Patient Disposition: Home Clinical Impression: Laceration Discharge Date/Time: 07/06/19 17:59 Instructions: DI for Laceration Repair Steri-Strips, DI for Minor Laceration Activity Restrictions/Additional Instructions: Thank you for trusting us with your care today As I discussed, your x-ray shows no acute fracture or obvious foreign body. It is important that you follow up with primary care provider, especially if worsening or no improvement. There can be fractures that did not show up on initial x-ray. Please monitor for signs of infection such as redness, swelling, purulent drainage. Please follow up with these occur. Please come back to the emergency department for any acute concerns. Please follow-up with primary care provider. Prescriptions: No Action trazodone 50 mg tablet 25 mg PO BEDTIME PRN (Reason: insomnia) Qty: 30 RF: 0 gabapentin [Neurontin] 300 mg capsule 300 mg PO TID Qty: 90 RF: 1 levothyroxine 150 mcg capsule 150 mcg PO DAILY Qty: 60 RF: 0 hydroxyzine HCl 25 mg tablet 25 mg PO QID PRN (Reason: anxiety) Qty: 90 RF: 2 (DME) Disabled Parking Qty: 1 RF: 0 Referrals: Lauren Barnett DO [Primary Care Provider] - <Oumar Staples DO - Last Filed: 07/07/19 07:13> Cosign ED Attending Jamieature Attestation: I was immediately available in the department for consultation. This documentation has been reviewed and I agree with assessment and plan. Supervised by Oumar Staples DO
[2019-07-06 17:58] VITALS: BP 132/72; PULSE 66; RESP 18; O2SAT 100
== END 2019-07-06 17:59 | disposition home or self-care (01) ==
PROVIDERS: Emergency Provider Nurse Practitioner Family; PCP Family Medicine
DX: S91.311A Laceration without foreign body, right foot, initial encounter (principal); W25.XXXA Contact with sharp glass, initial encounter; Z23 Encounter for immunization
CPT/HCPCS: 73630; 90471; 99283; 90715

== ENCOUNTER 2019-10-29 16:46 | Emergency (ER) | payer OTHER, SELFPAY ==
[2019-10-29 17:09] VITALS: BP 144/81; PULSE 82; RESP 18; TEMP 36.7; O2SAT 100; BMI 38.2
--- NOTE | 2019-10-29 18:15 | ED.FEMALEGU ---
HPI - Female Genitourinary General Chief complaint: Vaginal Bleeding Stated complaint: Feels like in Labor, Not Time Seen by Provider: 10/29/19 18:05 Source: patient Mode of arrival: Ambulatory Limitations: no limitations History of Present Illness HPI Narrative: 29-year-old female nonsmoker with history of hypothyroid presents with a chief complaint of multiple days of increasingly severe lower pelvic cramping that reminds her of the sensation she had when she was . She is not , and had her tubes removed surgically a few years ago. She denies fever or chills. She is not dizzy nor weak or lightheaded. She denies any nausea or vomiting. Her cramping has become increasingly intense and seems to be worse when she moves and improved with rest. Her last menstrual cycle was 6 weeks ago and she historically has very regular. She started spotting over the past day or 2 but denies any heavy vaginal bleeding. Complaint: vaginal bleeding Onset (ago): day(s) Location: suprapubic Severity: moderate Quality: Aching and Cramping Duration: constant Exacerbating factors: movement Related Data Previous Rx's Medication Instructions Recorded gabapentin 300 mg capsule 300 mg PO TID #90 cap 02/23/16 levothyroxine 150 mcg capsule 150 mcg PO DAILY #60 cap 12/05/17 hydroxyzine HCl 25 mg tablet 25 mg PO QID PRN #90 tab 02/14/18 Disabled Parking #1 each 06/24/19 trazodone 50 mg tablet 25 mg PO BEDTIME PRN #30 tab 07/18/19 ketorolac 10 mg PO Q6H PRN #20 tab 10/29/19 Allergies Allergy/AdvReac Type Severity Reaction Status Date / Time tramadol [TRAMADOL] Allergy Severe anaphylaxis Verified 10/29/19 17:09 amoxicillin [From AUGMENTIN] Allergy Mild itching Verified 10/29/19 17:09 clavulanic acid Allergy Mild itching Verified 10/29/19 17:09 [From AUGMENTIN] Sulfa (Sulfonamide Allergy Mild itching Verified 10/29/19 17:09 Antibiotics) [SULFA (SULFONAMIDE ANTIBIOTICS)] hydrocodone [HYDROCODONE] AdvReac Mild nausea Verified 10/29/19 17:09 oxycodone [OXYCODONE] AdvReac Mild nausea Verified 10/29/19 17:09 Review of Systems Constitutional Constitutional: Denies chills, Denies fatigue, Denies fever(s), Denies frequent falls, Denies lethargy and Denies weakness Eyes Eyes: Denies change in vision, Denies eye discharge, Denies irritation and Denies loss of vision ENT Ears, Nose, Mouth, and Throat: Denies change in voice, Denies dizziness, Denies neck pain, Denies sore throat and Denies throat swelling Cardiovascular Cardiovascular: Denies chest pain, Denies irregular heart rhythm, Denies lightheadedness, Denies palpitations, Denies dyspnea, Denies dyspnea on exertion and Denies orthopnea Respiratory Respiratory: Denies cough, Denies dyspnea, Denies dyspnea on exertion and Denies wheezing Gastrointestinal Gastrointestinal: Denies abdominal pain, Denies change in bowel habits, Denies diarrhea, Denies nausea and Denies vomiting Genitourinary Genitourinary: Reports abnormal vaginal bleeding, Reports amenorrhea and Reports pelvic pain Musculoskeletal Musculoskeletal: Denies neck pain and Denies numbness Integumentary/Breasts Skin/Breast: Denies pruritus, Denies erythema, Denies rash and Denies wounds Neurologic Neurologic: Denies behavioral changes, Denies confusion, Denies dizziness, Denies frequent falls, Denies loss of vision, Denies numbness and Denies weakness Psychiatric Psychiatric: Denies anxiety, Denies behavioral changes, Denies confusion, Denies depression, Denies homicidal ideation and Denies suicidal ideation Endocrine Endocrine: Denies fatigue, Denies flushing and Denies palpitations Hematologic/Lymphatic Hematologic/Lymphatic: Denies easy bruising Allergic/Immunologic Allergic/Immunologic: Denies urticaria, Denies throat swelling and Denies wheezing Patient History Medical History Celiac disease/sprue (Chronic 2011) Hypothyroidism (Chronic 2005) Insomnia (Acute) Surgical History Anesthesia complication (Resolved) History of bilateral tubal ligation (Resolved) Status post delivery (Resolved 08/07/11) Family History Father Age: 52 Hypertension High cholesterol Mother Age: 57 Skin cancer Grandmother Age: 73 Diabetes mellitus alcohol intake frequency: 0-2 drinks per day Substance Use Type: does not use Exam Narrative Exam Narrative: GENERAL: [29] year old patient appears stated age. Well-nourished, well-developed patient, in moderate distress, obviously uncomfortable HEAD: Atraumatic. Normocephalic. EYES: Pupils equal round and reactive. Extraocular motions intact. No scleral icterus. No injection or drainage. ENT: Nose without bleeding, purulent drainage. Throat without erythema, tonsillar hypertrophy or exudate. Airway patent. NECK: Trachea midline. Non tender CARDIOVASCULAR: Regular rate and rhythm without murmurs, gallops, or rubs. RESPIRATORY: Clear to auscultation. Breath sounds equal bilaterally. No wheezes, rales, or rhonchi. GASTROINTESTINAL: Abdomen soft, lower abdominal discomfort, no rebound or guarding, nondistended. EXTREMITIES: No edema or joint tenderness. BACK: Nontender without deformity or crepitance. No flank tenderness. NEURO: AOx3. SKIN: No rash or erythema of visible areas Initial Vital Signs Initial Vital Signs: Vital Signs Temperature 98.1 F 10/29/19 17:09 Pulse Rate 82 10/29/19 17:09 Respiratory Rate 18 10/29/19 17:09 Blood Pressure 144/81 H 10/29/19 17:09 Pulse Oximetry 100 10/29/19 17:09 Course Orders Ordered: ED Orders 10/29/19 18:38 US pelvic complete Stat 10/29/19 19:07 Urine Microscopic Stat 10/29/19 20:03 Complete Blood Count AUTO DIFF Stat Comprehensive Metabolic Panel Stat Test Serum,Qual Stat Discontinued Medications Sodium Chloride (Normal Saline 0.9%) 1,000 mls @ 1,000 mls/hr IV BOLUS ONE Stop: 10/29/19 19:37 Last Infusion: 10/29/19 21:45 Dose: 0 mls/hr Documented by: Admin: 10/29/19 20:25 Dose: 1,000 mls/hr Documented by: PHIL Ketorolac Tromethamine (Toradol) 15 mg IV NOW ONE Stop: 10/29/19 18:39 Last Admin: 10/29/19 20:26 Dose: 15 mg Documented by: PHIL Reevaluation(s) Reevaluation #1: patient feeling much better after the above stated therapies Consultations Consultation #1: discussed with Dr. Hanna. Presentation and exam not consistent with torsion. Discussed possibility of an anovulatory cycle. recommends return precautions, toradol, follow up Vital Signs Vital signs: Vital Signs - 8 hr 10/29/19 17:09 10/29/19 19:08 10/29/19 20:30 Temperature 98.1 F Pulse Rate 82 72 66 Respiratory Rate 18 18 16 Blood Pressure 144/81 H 124/59 L 126/74 Pulse Oximetry 100 100 99 10/29/19 21:00 10/29/19 21:31 Temperature Pulse Rate 70 77 Respiratory Rate 14 14 Blood Pressure 129/81 112/53 L Pulse Oximetry 100 98 MDM - Female Genitourinary Lab Data Result diagrams: 10/29/19 20:03 10/29/19 20:03 Labs: Lab Results 10/29/19 10/29/19 10/29/19 Range/Units 19:07 20:03 20:03 WBC 9.2 (4.5-11.0) X10^3/uL RBC 4.73 (4.0-5.2) X10^6/uL Hgb 12.7 (12.0-16.0) g/dL Hct 38.3 (36-46) % MCV 80.9 (80-100) fL MCH 26.8 (26-34) PG MCHC 33.1 (30-36) % RDW 14.9 H (11.6-14.8) % Plt Count 327 (150-400) X10^3/uL Neut % (Auto) 70.8 (50-75) % Lymph % (Auto) 19.2 L (25-40) % [place] % (Auto) 6.5 (3-14) % Eos % (Auto) 2.7 (2-4) % Baso % (Auto) 0.8 (0-2) % Neut # (Auto) 6500 (0282-1316) /uL Lymph # (Auto) 1800 (2663-2012) /uL [place] # (Auto) 600 (0-900) /uL Eos # (Auto) 300 (0-450) /uL Baso # (Auto) 100 (0-100) /uL Sodium (137-145) mmol/L Potassium (3.4-5.1) mmol/L Chloride (98-107) mmol/L Carbon Dioxide (22-32) mmol/L BUN (7-17) mg/dL Creatinine (0.52-1.04) mg/dL Estimated GFR (>60) mL/min BUN/Creatinine Ratio (6-22) Glucose (70-100) mg/dL Calcium (8.4-10.2) mg/dL Total Bilirubin (0.2-1.3) mg/dL AST (14-36) IU/L ALT (<35) IU/L Alkaline Phosphatase (38-126) U/L Total Protein (6.3-8.2) g/dL Albumin (3.5-5.0) g/dL Globulin (1.7-4.1) g/dL Albumin/Globulin Ratio (1.0-2.8) Serum , Qual Negative (Negative) Urine RBC 1-5/hpf (0-5/HPF) Urine WBC 0-1/hpf (0-5/HPF) Ur Squamous Epith Cells 0-1 /hpf (0-5/HPF) Amorphous Sediment 1+ Urine Bacteria None seen (None) Ur Culture Indicated? Cult not indicated 10/29/19 Range/Units 20:03 WBC (4.5-11.0) X10^3/uL RBC (4.0-5.2) X10^6/uL Hgb (12.0-16.0) g/dL Hct (36-46) % MCV (80-100) fL MCH (26-34) PG MCHC (30-36) % RDW (11.6-14.8) % Plt Count (150-400) X10^3/uL Neut % (Auto) (50-75) % Lymph % (Auto) (25-40) % [place] % (Auto) (3-14) % Eos % (Auto) (2-4) % Baso % (Auto) (0-2) % Neut # (Auto) (2862-9770) /uL Lymph # (Auto) (6980-1413) /uL [place] # (Auto) (0-900) /uL Eos # (Auto) (0-450) /uL Baso # (Auto) (0-100) /uL Sodium 139 (137-145) mmol/L Potassium 3.8 (3.4-5.1) mmol/L Chloride 107 (98-107) mmol/L Carbon Dioxide 28 (22-32) mmol/L BUN 8 (7-17) mg/dL Creatinine 0.75 (0.52-1.04) mg/dL Estimated GFR > 60.0 (>60) mL/min BUN/Creatinine Ratio 10.7 (6-22) Glucose 86 (70-100) mg/dL Calcium 8.7 (8.4-10.2) mg/dL Total Bilirubin 0.6 (0.2-1.3) mg/dL AST 30 (14-36) IU/L ALT 28 (<35) IU/L Alkaline Phosphatase 104 (38-126) U/L Total Protein 7.5 (6.3-8.2) g/dL Albumin 4.0 (3.5-5.0) g/dL Globulin 3.5 (1.7-4.1) g/dL Albumin/Globulin Ratio 1.1 (1.0-2.8) Serum , Qual (Negative) Urine RBC (0-5/HPF) Urine WBC (0-5/HPF) Ur Squamous Epith Cells (0-5/HPF) Amorphous Sediment Urine Bacteria (None) Ur Culture Indicated? Urine Dip Bedside Urine Glucose Negative Bedside Urine Bilirubin - Negative Bedside Urine Ketone - Negative Urine Specific [place] 1.015 Bedside Urine Occult Blood +++ Bedside Urine pH 6.0 Bedside Urine Protein - Negative Bedside Urine Urobilinogen - Negative Bedside Urine Nitrite - Negative Bedside Urine Leukocytes - Negative Esterase Imaging Data US - TECHNICAL PROGRAM MANAGER: Radiologist's Impression: [place] [address] Ultrasound Report Signed Patient: Adrienne Quintero RMR#: [id number] : 1990Acct:[id number] Age/Sex: 29 / FDate of Service: 10/29/19 Loc: ED Accession Number: [id number] Procedure: US pelvic complete Ordering Provider: Oumar Staples D.O. PROCEDURE: US PELVIC COMPLETE INDICATIONS: PAIN TECHNIQUE: Real-time scanning was performed of the pelvic organs, with image documentation. Additional endovaginal scanning was necessary due to incomplete visualization of the adnexal and endometrial structures by transabdominal scanning. COMPARISON: None. FINDINGS: Image quality severely limited secondary to patient body habitus. Transabdominal scanning: Limited scanning through the kidneys shows no hydronephrosis. No pathologic free abdominal or pelvic fluid. Endovaginal scanning: Uterus: Uterus is normal in size at 9.2 x 4.9 x 3.7 cm. Uterus is poorly seen due to body habitus but appears grossly normal. The endometrium measures 5.2 mm in combined thickness. Endometrium is poorly seen due to patient body habitus cord appears grossly normal Ovaries: Right ovary measures 3.0 x 1.3 x 2.8 centimeters. Left ovary measures 4.1 x 1.4 x 1.8 centimeters. Ovaries are poorly seen due to patient body habitus but appear grossly normal. Unable to detect Doppler waveforms in the ovaries which is likely due to poor image quality related patient body habitus, however ovarian torsion cannot be excluded. IMPRESSION: 1. Image quality severely limited by patient body habitus. 2. Uterus is poorly visualized, but is grossly normal. 3. Ovaries poorly visualized, but grossly normal. 4. Doppler waveforms not detectable in the ovaries possibly due to patient body habitus, however ovarian torsion cannot be excluded. Dictated by: Laurie Andrew MD, PhD on 10/29/2019 at 20:43 Approved by: Laurie Andrew MD, PhD on 10/29/2019 at 20:46 Discharge Plan Departure Patient Disposition: Home Clinical Impression: Pelvic pain Discharge Date/Time: 10/29/19 21:51 Instructions: DI for Pelvic Pain Activity Restrictions/Additional Instructions: *You have been diagnosed with [ pelvic pain ] *What to do: *Take medications as directed: Prescription sent to [facility] in [place] *Follow up with your primary care provider in 2-3 days, call for an appointment. Let them know you were seen in the Emergency Department and that we ask that you be seen in follow up *Return to ER if you should have any new, worsening or concerning symptoms such as worsening pain, vomiting, fever > 101, increased bleeding (>1 pad per hour) Prescriptions: New ketorolac 10 mg tablet 10 mg PO Q6H PRN (Reason: pain) Qty: 20 RF: 0 No Action gabapentin [Neurontin] 300 mg capsule 300 mg PO TID Qty: 90 RF: 1 levothyroxine 150 mcg capsule 150 mcg PO DAILY Qty: 60 RF: 0 hydroxyzine HCl 25 mg tablet 25 mg PO QID PRN (Reason: anxiety) Qty: 90 RF: 2 (DME) Disabled Parking Qty: 1 RF: 0 trazodone 50 mg tablet 25 mg PO BEDTIME PRN (Reason: insomnia) Qty: 30 RF: 2 Referrals: Lauren Barnett DO [Primary Care Provider] -
--- NOTE | 2019-10-29 18:38 | DI.US.S_ITS ---
PROCEDURE: US PELVIC COMPLETE INDICATIONS: PAIN TECHNIQUE: Real-time scanning was performed of the pelvic organs, with image documentation. Additional endovaginal scanning was necessary due to incomplete visualization of the adnexal and endometrial structures by transabdominal scanning. COMPARISON: None. FINDINGS: Image quality severely limited secondary to patient body habitus. Transabdominal scanning: Limited scanning through the kidneys shows no hydronephrosis. No pathologic free abdominal or pelvic fluid. Endovaginal scanning: Uterus: Uterus is normal in size at 9.2 x 4.9 x 3.7 cm. Uterus is poorly seen due to body habitus but appears grossly normal. The endometrium measures 5.2 mm in combined thickness. Endometrium is poorly seen due to patient body habitus cord appears grossly normal Ovaries: Right ovary measures 3.0 x 1.3 x 2.8 centimeters. Left ovary measures 4.1 x 1.4 x 1.8 centimeters. Ovaries are poorly seen due to patient body habitus but appear grossly normal. Unable to detect Doppler waveforms in the ovaries which is likely due to poor image quality related patient body habitus, however ovarian torsion cannot be excluded. IMPRESSION: 1. Image quality severely limited by patient body habitus. 2. Uterus is poorly visualized, but is grossly normal. 3. Ovaries poorly visualized, but grossly normal. 4. Doppler waveforms not detectable in the ovaries possibly due to patient body habitus, however ovarian torsion cannot be excluded. Dictated by: Laurie Andrew MD, PhD on 10/29/2019 at 20:43 Approved by: Laurie Andrew MD, PhD on 10/29/2019 at 20:46
[2019-10-29 19:08] VITALS: BP 124/59; PULSE 72; RESP 18; O2SAT 100
[2019-10-29 19:30] LABS: Bacteria Urine None Seen
[2019-10-29 19:42] LABS: Amorphous Sediment Urine 1+; Culture Indicated Urine Cult Not Indicated; RBC Urine 1-5/HPF (0-5/HPF); Squamous Epithelial Cell Urine 0-1 /HPF (0-5/HPF); WBC Urine 0-1/HPF (0-5/HPF)
[2019-10-29 20:10] LABS: Add Manual Diff / Slide Review NO; Basophils Absolute Auto 100 /uL (0-100); Basophils Percent Auto 0.8 % (0-2); Eosinophils Absolute Auto 300 /uL (0-450); Eosinophils Percent Auto 2.7 % (2-4); Hematocrit 38.3 % (36-46); Hemoglobin 12.7 g/dL (12.0-16.0); Lymphocytes Absolute Auto 1800 /uL (1100-4500); Lymphocytes Percent Auto 19.2 % (25-40); Mean Corpuscular HGB Conc 33.1 % (30-36); Mean Corpuscular Hemoglobin 26.8 PG (26-34); Mean Corpuscular Volume 80.9 fL (80-100); Monocytes Absolute Auto 600 /uL (0-900); Monocytes Percent Auto 6.5 % (3-14); Neutrophils Absolute Auto 6500 /uL (1500-7000); Neutrophils Percent Auto 70.8 % (50-75); Platelet Count 327 X10^3/uL (150-400); Red Blood Cell Count 4.73 X10^6/uL (4.0-5.2); Red Cell Distribution Width 14.9 % (11.6-14.8); White Blood Cell Count 9.2 X10^3/uL (4.5-11.0)
[2019-10-29 20:20] LABS: HEMOLYSIS < 15 (0-50); Sodium 139 mmol/L (137-145)
[2019-10-29 20:23] LABS: Alanine Aminotransferase 28 IU/L (<35); Albumin Globulin Ratio 1.1 (1.0-2.8); Alkaline Phosphatase 104 U/L (38-126); Aspartate Aminotransferase 30 IU/L (14-36); BUN Creatinine Ratio 10.7 (6-22); Bilirubin Total 0.6 mg/dL (0.2-1.3); Blood Urea Nitrogen 8 mg/dL (7-17); Calcium 8.7 mg/dL (8.4-10.2); Carbon Dioxide 28 mmol/L (22-32); Chloride 107 mmol/L (98-107); Estimated Glomerular Filt Rate > 60.0 mL/min (>60); Globulin 3.5 g/dL (1.7-4.1); Glucose 86 mg/dL (70-100); Potassium 3.8 mmol/L (3.4-5.1); Total Protein 7.5 g/dL (6.3-8.2)
[2019-10-29] MEDS: SODIUM CHLORIDE 0.9% 1,000 ML 1000 ML IV (20:25)
[2019-10-29] MEDS: KETOROLAC 60 MG/2 ML VIAL 15 MG IV (20:26)
[2019-10-29 20:29] LABS: Pregnancy Test Serum,Qual Negative (Negative)
[2019-10-29 20:30] VITALS: BP 126/74; PULSE 66; RESP 16; O2SAT 99
[2019-10-29 21:00] VITALS: BP 129/81; PULSE 70; RESP 14; O2SAT 100
[2019-10-29 21:31] VITALS: BP 112/53; PULSE 77; RESP 14; O2SAT 98
== END 2019-10-29 21:51 | disposition home or self-care (01) ==
PROVIDERS: Emergency Provider Emergency Medicine; PCP Family Medicine
DX: R10.2 Pelvic and perineal pain (principal)
CPT/HCPCS: 36415; 76830; 76856; 80053; 81003; 81015; 84703; 85025; 96361; 96374; 99284; J1885

== ENCOUNTER 2019-12-06 12:58 | Emergency (ER) | payer OTHER, SELFPAY ==
[2019-12-06 13:18] VITALS: BP 137/83; PULSE 82; RESP 15; TEMP 36.4; O2SAT 98
--- NOTE | 2019-12-06 13:23 | PC.NURSE ---
Pt potentially swallowed some metal shavings that were found in ice cream last night. appears well. head to toe assessment grossly intact. denies nausea or vomiting. states mild abd pain and a headache.
--- NOTE | 2019-12-06 13:50 | DI.RAD.S_ITS ---
PROCEDURE: XR ABDOMEN MIN 2V INDICATIONS: swallowed metal pieces in ice cream, abd pain TECHNIQUE: 2 views of the abdomen were acquired. COMPARISON: None. FINDINGS: Surgical changes and devices: None. Bowel: No pneumoperitoneum. The bowel gas pattern is normal. Soft tissues: No masses; visualized solid organ contours appear normal in size. No suspicious abdominal calcifications. Bones: No suspicious bony abnormalities. IMPRESSION: No radiopaque foreign bodies. Dictated by: Raj Bueno M.D. on 12/06/2019 at 14:37 Approved by: Raj Bueno M.D. on 12/06/2019 at 14:38
--- NOTE | 2019-12-06 14:00 | ED_ITS ---
HPI - Skin/Abscess/Foreign Bdy <Radha Ozuna, APPLIQUER ZIGZAG-BC - Last Filed: 12/06/19 16:14> General Chief complaint: Skin/Abscess/Foreign Body Stated complaint: swallowed metal shavings/ball berrings Time Seen by Provider: 12/06/19 13:25 Source: patient Mode of arrival: Ambulatory Limitations: no limitations History of Present Illness HPI narrative: The patient is a 29-year-old female nonsmoker with history of depression and generalized anxiety disorder who presents with a chief complaint of having swallowed metal shavings and ball bearings in her ice cream last night. She and her family ate sofatronic ice cream, and this morning she open up the ice cream to put it in her coffee. She saw metal pieces and, so she mounted it down today and found small 2 mm jona metal balls as well as metal shavings in it. Last night she thought that she might have had some metal in her mouth or something gritty. She complains of generalized abdominal discomfort, no fevers nausea vomiting or diarrhea. No chest pain or shortness of breath. She denies any possibility of as she had her tubes surgically removed a a few years ago. Tetanus is up-to-date. Having normal bowel movements, no blood or black tarry stools. Related Data Previous Rx's Medication Instructions Recorded gabapentin 300 mg capsule 300 mg PO TID #90 cap 02/23/16 levothyroxine 150 mcg capsule 150 mcg PO DAILY #60 cap 12/05/17 hydroxyzine HCl 25 mg tablet 25 mg PO QID PRN #90 tab 02/14/18 [address]ing #1 each 06/24/19 trazodone 50 mg tablet 25 mg PO BEDTIME PRN #30 tab 07/18/19 ketorolac 10 mg PO Q6H PRN #20 tab 10/29/19 Allergies Allergy/AdvReac Type Severity Reaction Status Date / Time tramadol [TRAMADOL] Allergy Severe anaphylaxis Verified 12/06/19 13:24 amoxicillin [From AUGMENTIN] Allergy Mild itching Verified 12/06/19 13:24 clavulanic acid Allergy Mild itching Verified 12/06/19 13:24 [From AUGMENTIN] Sulfa (Sulfonamide Allergy Mild itching Verified 12/06/19 13:24 Antibiotics) [SULFA (SULFONAMIDE ANTIBIOTICS)] hydrocodone [HYDROCODONE] AdvReac Mild nausea Verified 12/06/19 13:24 oxycodone [OXYCODONE] AdvReac Mild nausea Verified 12/06/19 13:24 Review of Systems <RICHARD Reyna - Last Filed: 12/06/19 16:14> Review of Systems Narrative: GENERAL: Denies chills, fatigue, malaise, fever, sweats. HEENT: Denies sinus pain, ear pain, sore throat, difficulty swallowing, dizziness. RESPIRATORY: Denies dyspnea, cough, wheezing, hemoptysis, sputum. CARDIOVASCULAR: Denies chest pain, palpitations, orthopnea, edema, GASTROINTESTINAL: Denies nausea, vomiting, abdominal pain, diarrhea, constipation, melena. : Denies dysuria, frequency, incontinence, hematuria, urinary retention. MUSCULOSKELETAL: denies weakness, joint pain, or bony pain SKIN: Denies rash, skin lesions, or other NEUROLOGIC: Denies weakness, headache, numbness, change in speech, confusion, seizures, incoordination. PSYCHIATRIC: No concerning psychosocial issues. 12 point review of systems is negative except for those stated above Patient History <CHYNA Reyna - Last Filed: 12/06/19 16:14> Medical History (Updated 12/06/19 @ 15:00 by RICHARD Reyna) Celiac disease/sprue (Chronic 2011) Hypothyroidism (Chronic 2005) Insomnia (Acute) Morbid obesity with BMI of 40.0-44.9, adult (Acute) Surgical History Anesthesia complication (Resolved) History of bilateral tubal ligation (Resolved) Status post delivery (Resolved 08/07/11) Family History Father Age: 53 Hypertension High cholesterol Mother Age: 58 Skin cancer Grandmother Age: 74 Diabetes mellitus Social History marital status: household members: spouse and children (daughter) housing: house pets and animals: Yes (2 dogs 1 cat) jonna/mu-ism: Anabaptist seatbelt use: always helmet use: Yes water heater temp set < 120 deg: Yes Smoking Status: Never smoker alcohol intake: never substance use type: does not use Smoking Status: Never smoker alcohol intake frequency: 0-2 drinks per day Substance Use Type: does not use Exam <RICHARD Reyna - Last Filed: 12/06/19 16:14> Narrative Exam Narrative: GENERAL: This is a well-nourished, well-developed patient, in no acute distress HEAD: Atraumatic. Normocephalic. EYES: Pupils equal round and reactive. Extraocular motions intact. No scleral icterus. No injection or drainage. ENT: Nose without bleeding, purulent drainage or septal hematoma. Wearing a mask Airway patent. NECK: Trachea midline. No JVD or lymphadenopathy. Supple, nontender, no meningeal signs. CARDIOVASCULAR: Regular rate and rhythm without murmurs, gallops, or rubs. RESPIRATORY: Clear to auscultation. Breath sounds equal bilaterally. No wheezes, rales, or rhonchi. No cough. No increased respiratory effort. No accessory muscle use GASTROINTESTINAL: Abdomen soft, diffusely tender no guarding, nondistended. No hepato-splenomegaly, or palpable masses. No guarding. Active bowel sounds all 4 quadrants EXTREMITIES: Using extremities equally NEURO: AOx3. SKIN: No rash or erythema on visible skin Initial Vital Signs Initial Vital Signs: Vital Signs Temperature 97.6 F 12/06/19 13:18 Pulse Rate 82 12/06/19 13:18 Respiratory Rate 15 12/06/19 13:18 Blood Pressure 137/83 12/06/19 13:18 Pulse Oximetry 98 12/06/19 13:18 <Kyung Page DO - Last Filed: 12/07/19 07:35> Initial Vital Signs Initial Vital Signs: Vital Signs Temperature 97.6 F 12/06/19 13:18 Pulse Rate 82 12/06/19 13:18 Respiratory Rate 15 12/06/19 13:18 Blood Pressure 137/83 12/06/19 13:18 Pulse Oximetry 98 12/06/19 13:18 Scores <RICHARD Reyna - Last Filed: 12/06/19 16:14> GCS Angela coma scale eye opening: Spontaneous Angela coma scale verbal response: Orientated Angela coma scale motor response: Obey commands Angela coma scale total score: 15 Course <RICHARD Reyna - Last Filed: 12/06/19 16:14> Orders Ordered: ED Orders 12/06/19 13:50 XR abdomen min 2V Stat Vital Signs Vital signs: Vital Signs - 8 hr 12/06/19 13:18 Temperature 97.6 F Pulse Rate 82 Respiratory Rate 15 Blood Pressure 137/83 Pulse Oximetry 98 <Kyung Page DO - Last Filed: 12/07/19 07:35> Orders Ordered: ED Orders 12/06/19 13:50 XR abdomen min 2V Stat Vital Signs Vital signs: Vital Signs - 8 hr 12/06/19 13:18 Temperature 97.6 F Pulse Rate 82 Respiratory Rate 15 Blood Pressure 137/83 Pulse Oximetry 98 MDM - Skin/Abscess/Foreign Bdy <RICHARD Reyna - Last Filed: 12/06/19 16:14> Imaging Data Abdominal x-ray: Radiologist's Impression: [address] [place] [id number] XRay Report Signed Patient: Adrienne Quintero RMR#: [id number] : 1990Acct:[id number] Age/Sex: 29 / FDate of Service: 12/06/19 Loc: ED Accession Number: [id number] Procedure: XR abdomen min 2V Ordering Provider: Radha Ozuna PROCEDURE: XR ABDOMEN MIN 2V INDICATIONS: swallowed metal pieces in ice cream, abd pain TECHNIQUE: 2 views of the abdomen were acquired. COMPARISON: None. FINDINGS: Surgical changes and devices: None. Bowel: No pneumoperitoneum. The bowel gas pattern is normal. Soft tissues: No masses; visualized solid organ contours appear normal in size. No suspicious abdominal calcifications. Bones: No suspicious bony abnormalities. IMPRESSION: No radiopaque foreign bodies. Dictated by: Raj Bueno M.D. on 12/06/2019 at 14:37 Approved by: aRj Bueno M.D. on 12/06/2019 at 14:38 [facility] Narrative Medical decision making narrative: The patient is a 29-year-old female who presents with a chief complaint of possibly having swelling metal shavings or a small BB in her ice cream last night. She is in no apparent distress. She does want an x-ray to evaluate for possible foreign body, which results negative. I discussed at length monitoring for high fevers, abdominal pain with fevers, inability keep down food or fluids, black or bloody stools etcetera and coming back to the emergency department for any acute concerns. She is well appearing in the ER, in no acute distress, does not have an acute abdomen on exam. Discussed at length follow up with primary care provider in the next few days as well as coming back to the emergency department for any acute concerns. Patient has no questions or concerns upon discharge and states understanding return precautions as well as follow-up care. Discharge Plan Departure Patient Disposition: Home Clinical Impression: Foreign body, swallowed Qualifiers: Encounter type: initial encounter Qualified Code(s): T18.9XXA - Foreign body of alimentary tract, part unspecified, initial encounter Discharge Date/Time: 12/06/19 15:13 Instructions: DI for Foreign Body, Swallowed-Adult Activity Restrictions/Additional Instructions: Thank you for trusting us with your care today. As discussed, please follow-up with primary care provider in the next few days. Please monitor for abdominal pain, abdominal pain with fever black tarry stools etcetera. Please come back to emergency department for any acute concerns. Prescriptions: No Action gabapentin [Neurontin] 300 mg capsule 300 mg PO TID Qty: 90 RF: 1 levothyroxine 150 mcg capsule 150 mcg PO DAILY Qty: 60 RF: 0 hydroxyzine HCl 25 mg tablet 25 mg PO QID PRN (Reason: anxiety) Qty: 90 RF: 2 (DME) Disabled Parking Qty: 1 RF: 0 trazodone 50 mg tablet 25 mg PO BEDTIME PRN (Reason: insomnia) Qty: 30 RF: 2 ketorolac 10 mg tablet 10 mg PO Q6H PRN (Reason: pain) Qty: 20 RF: 0 Referrals: Giselle Cope ARNP [Non-Staff] - Lauren Barnett DO [Primary Care Provider] - <Kyung Page DO - Last Filed: 12/07/19 07:35> Cosign ED Attending Jamieature Attestation: I was immediately available in the department for consultation. Documentation has been reviewed. I agree with assessment and plan.
== END 2019-12-06 15:13 | disposition home or self-care (01) ==
PROVIDERS: Emergency Provider Nurse Practitioner Family; PCP Family Medicine
DX: T18.9XXA Foreign body of alimentary tract, part unspecified, initial encounter (principal); R10.9 Unspecified abdominal pain
CPT/HCPCS: 74019; 99283

== ENCOUNTER → 2020-02-06 08:51 | Outpatient (CLI) | payer OTHER, SELFPAY ==
[2020-02-06 09:22] LABS: Add Manual Diff / Slide Review NO; Basophils Absolute Auto 100 /uL (0-100); Basophils Percent Auto 1.3 % (0-2); Eosinophils Absolute Auto 300 /uL (0-450); Eosinophils Percent Auto 4.6 % (2-4); Hematocrit 38.9 % (36-46); Hemoglobin 12.7 g/dL (12.0-16.0); Lymphocytes Absolute Auto 1400 /uL (1100-4500); Lymphocytes Percent Auto 22.6 % (25-40); Mean Corpuscular HGB Conc 32.6 % (30-36); Mean Corpuscular Hemoglobin 26.7 PG (26-34); Mean Corpuscular Volume 81.7 fL (80-100); Monocytes Absolute Auto 400 /uL (0-900); Monocytes Percent Auto 7.2 % (3-14); Neutrophils Absolute Auto 3900 /uL (1500-7000); Neutrophils Percent Auto 64.3 % (50-75); Platelet Count 311 X10^3/uL (150-400); Red Blood Cell Count 4.76 X10^6/uL (4.0-5.2); Red Cell Distribution Width 15.3 % (11.6-14.8); White Blood Cell Count 6.1 X10^3/uL (4.5-11.0)
[2020-02-06 09:28] LABS: Alanine Aminotransferase 32 IU/L (<35); Albumin 4.2 g/dL (3.5-5.0); Albumin Globulin Ratio 1.2 (1.0-2.8); Alkaline Phosphatase 90 U/L (38-126); Aspartate Aminotransferase 32 IU/L (14-36); BUN Creatinine Ratio 16.2 (6-22); Bilirubin Total 0.5 mg/dL (0.2-1.3); Blood Urea Nitrogen 12 mg/dL (7-17); Calcium 9.2 mg/dL (8.4-10.2); Carbon Dioxide 21 mmol/L (22-32); Chloride 108 mmol/L (98-107); Estimated Glomerular Filt Rate > 60.0 mL/min (>60); Globulin 3.5 g/dL (1.7-4.1); Glucose 105 mg/dL (70-100); HEMOLYSIS < 15 (0-50); Lipase 68 U/L (23-300); Potassium 4.2 mmol/L (3.4-5.1); Sodium 137 mmol/L (137-145); Total Protein 7.7 g/dL (6.3-8.2)
== END ==
PROVIDERS: PCP Registered Nurse; Referring Provider Registered Nurse; Visit Provider Registered Nurse
DX: R10.9 Unspecified abdominal pain (principal)
CPT/HCPCS: 36415; 80053; 83690; 85025; 87493

== ENCOUNTER 2020-05-27 18:20 | Emergency (ER) | payer OTHER, SELFPAY ==
[2020-05-27 18:30] VITALS: BP 147/72; PULSE 77; RESP 15; TEMP 37.1; O2SAT 100; BMI 38.7
[2020-05-27 19:06] LABS: RBC Urine 1-5/HPF (0-5/HPF); Renal Epithelial Cells Urine 0-1/HPF (0-1/HPF); Squamous Epithelial Cell Urine 1-5 /HPF (0-5/HPF); WBC Urine 30-100/HPF (0-5/HPF)
[2020-05-27 19:07] LABS: Amorphous Sediment Urine 1+; Bacteria Urine Occasional (0-1); Mucus Urine 1+ (Negative)
--- NOTE | 2020-05-27 19:41 | ED_ITS ---
HPI - General Adult General Chief complaint: Urogenital-Female Stated complaint: Sent by [facility] for UTI Time Seen by Provider: 05/27/20 18:35 Source: patient Mode of arrival: Ambulatory Limitations: no limitations History of Present Illness HPI narrative: 29-year-old female sent over from the walk-in clinic with a diag nosis of urinary tract infection based on their urinalysis here for evaluation of potential other issues going on secondary to right-sided abdominal pain. There was concern for appendicitis/gallbladder pathology/pyelonephritis. Patient does report dysuria and frequency. She is also complaining of right lower quadrant abdominal pain. Has had nausea but no vomiting. No changes in bowel habits. Related Data Home Medications Medication Instructions Recorded Confirmed levothyroxine 200 mcg tablet 200 mcg PO DAILY 02/06/20 05/27/20 Previous Rx's Medication Instructions Recorded gabapentin 300 mg capsule 300 mg PO TID #90 cap 02/23/16 hydroxyzine HCl 25 mg tablet 25 mg PO QID PRN #90 tab 02/14/18 [address]ing #1 each 06/24/19 trazodone 50 mg tablet 25 mg PO BEDTIME PRN #30 tab 07/18/19 ketorolac 10 mg PO Q6H PRN #20 tab 10/29/19 cephalexin 500 mg PO BID 3 Days #6 cap 05/27/20 Allergies Allergy/AdvReac Type Severity Reaction Status Date / Time tramadol [TRAMADOL] Allergy Severe anaphylaxis Verified 05/27/20 18:31 amoxicillin [From AUGMENTIN] Allergy Mild itching Verified 05/27/20 18:31 clavulanic acid Allergy Mild itching Verified 05/27/20 18:31 [From AUGMENTIN] Sulfa (Sulfonamide Allergy Mild itching Verified 05/27/20 18:31 Antibiotics) [SULFA (SULFONAMIDE ANTIBIOTICS)] hydrocodone [HYDROCODONE] AdvReac Mild nausea Verified 05/27/20 18:31 oxycodone [OXYCODONE] AdvReac Mild nausea Verified 05/27/20 18:31 Review of Systems Constitutional Constitutional: Denies fever(s) and Denies headache(s) ENT Ears, Nose, Mouth, and Throat: Denies headache(s) Cardiovascular Cardiovascular: Denies chest pain and Denies dyspnea Respiratory Respiratory: Denies dyspnea Gastrointestinal Gastrointestinal: Reports abdominal pain, Denies change in bowel habits, Reports nausea and Denies vomiting Genitourinary Genitourinary: Reports dysuria Genitourinary: Reports dysuria Musculoskeletal Musculoskeletal: Denies arthralgias and Denies myalgias Integumentary/Breasts Skin/Breast: Denies rash Neurologic Neurologic: Denies behavioral changes and Denies headache(s) Psychiatric Psychiatric: Denies behavioral changes Hematologic/Lymphatic On Anticoagulants: No Allergic/Immunologic Allergic/Immunologic: Denies urticaria Patient History Medical History Celiac disease/sprue (2011) Hypothyroidism (2005) Insomnia Morbid obesity with BMI of 40.0-44.9, adult Surgical History Anesthesia complication History of bilateral tubal ligation Status post delivery (08/07/11) Family History Father Age: 53 Hypertension High cholesterol Mother Age: 58 Skin cancer Grandmother Age: 74 Diabetes mellitus Social History marital status: household members: spouse and children (daughter) housing: house pets and animals: Yes (2 dogs 1 cat) jonna/yarsani: Quaker seatbelt use: always helmet use: Yes water heater temp set < 120 deg: Yes Smoking Status: Never smoker alcohol intake: never substance use type: does not use Smoking Status: Never smoker alcohol intake frequency: holidays/special occasions only Substance Use Type: does not use Exam Initial Vital Signs Initial Vital Signs: Vital Signs Temperature 98.7 F 05/27/20 18:30 Pulse Rate 77 05/27/20 18:30 Respiratory Rate 15 05/27/20 18:30 Blood Pressure 147/72 H 05/27/20 18:30 Pulse Oximetry 100 05/27/20 18:30 Const General: cooperative and comfortable Limitations: mental status not altered HENMT Head: normal to inspection and normocephalic Resp Effort & Inspection: normal respiratory effort Auscultation: clear to auscultation bilaterally Cardio Rate: regular rate Rhythm: regular rhythm GI Inspection: non-distended Palpation: soft, No firm and tender (Right lower quadrant) Back/Spine/Pelvis Back: No CVA tenderness Skin Lesions: no lesions Rashes: no rashes Neuro General: patient alert, patient awake and patient oriented x3 Cognition: normal cognition Speech: speech normal Extrem General: normal to inspection and capillary refill normal Psych Appearance: grossly normal and well kempt Course Orders Ordered: ED Orders 05/27/20 18:45 Urine Microscopic Stat 05/27/20 19:42 CT abdomen pelvis w con Stat 05/27/20 19:50 Complete Blood Count AUTO DIFF Stat Comprehensive Metabolic Panel Stat Lipase Stat Test Serum,Qual Stat 05/27/20 20:30 EKG-12 Lead Stat Discontinued Medications Cephalexin HCl (Cephalexin 250 Mg Capsule) 500 mg PO NOW ONE Stop: 05/27/20 22:15 Last Admin: 05/27/20 22:24 Dose: 500 mg Documented by: KATTY Sodium Chloride (Normal Saline 0.9%) 1,000 mls @ 1,000 mls/hr IV BOLUS ONE Stop: 05/27/20 19:36 Last Infusion: 05/27/20 21:23 Dose: 0 mls/hr Documented by: Admin: 05/27/20 20:00 Dose: 1,000 mls/hr Documented by: KATTY Sodium Chloride (Normal Saline 0.9%) 1,000 mls @ 1,000 mls/hr IV BOLUS ONE Stop: 05/27/20 20:40 Ketorolac Tromethamine (Ketorolac 60 Mg/2 Ml Vial) 30 mg IV NOW ONE Stop: 05/27/20 19:42 Last Admin: 05/27/20 20:00 Dose: 30 mg Documented by: KATTY Ondansetron HCl (Ondansetron 4 Mg/2 Ml Inj) 4 mg IV NOW ONE Stop: 05/27/20 19:42 Last Admin: 05/27/20 20:00 Dose: 4 mg Documented by: KATTY Ondansetron HCl (Ondansetron 4 Mg Odt Prepack) 1 bottle MISC SEEINSTR ONE Stop: 05/27/20 22:15 Last Admin: 05/27/20 22:24 Dose: 1 bottle Documented by: KATTY Pantoprazole Sodium (Pantoprazole 40 Mg Vial) 40 mg IV NOW ONE Stop: 05/27/20 20:31 Last Admin: 05/27/20 20:45 Dose: 40 mg Documented by: KATTY Vital Signs Vital signs: Vital Signs - 8 hr 05/27/20 18:30 05/27/20 20:31 05/27/20 21:00 Temperature 98.7 F Pulse Rate 77 75 75 Respiratory Rate 15 25 H Blood Pressure 147/72 H 134/80 120/62 Pulse Oximetry 100 100 100 05/27/20 21:30 05/27/20 22:00 05/27/20 22:15 Temperature Pulse Rate 67 62 71 Respiratory Rate 20 20 19 Blood Pressure 112/72 Pulse Oximetry 100 100 100 Medical Decision Making Lab Data Lab results reviewed: Yes I reviewed the patient's lab results. Result diagrams: 05/27/20 19:50 05/27/20 19:50 Labs: Lab Results 05/27/20 05/27/20 05/27/20 Range/Units 18:45 19:50 19:50 WBC 6.8 (4.5-11.0) X10^3/uL RBC 4.80 (4.0-5.2) X10^6/uL Hgb 12.7 (12.0-16.0) g/dL Hct 39.6 (36-46) % MCV 82.6 (80-100) fL MCH 26.4 (26-34) PG MCHC 32.0 (30-36) % RDW 14.5 (11.6-14.8) % Plt Count 325 (150-400) X10^3/uL Neut % (Auto) 62.4 (50-75) % Lymph % (Auto) 27.2 (25-40) % [place] % (Auto) 8.1 (3-14) % Eos % (Auto) 2.2 (2-4) % Baso % (Auto) 0.1 (0-2) % Neut # (Auto) 4200 (0777-0400) /uL Lymph # (Auto) 1800 (8470-7968) /uL [place] # (Auto) 600 (0-900) /uL Eos # (Auto) 200 (0-450) /uL Baso # (Auto) 0 (0-100) /uL Sodium 139 (137-145) mmol/L Potassium 4.1 (3.4-5.1) mmol/L Chloride 106 (98-107) mmol/L Carbon Dioxide 23 (22-32) mmol/L BUN 10 (7-17) mg/dL Creatinine 0.70 (0.52-1.04) mg/dL Estimated GFR > 60.0 (>60) mL/min BUN/Creatinine Ratio 14.3 (6-22) Glucose 93 (70-100) mg/dL Calcium 9.4 (8.4-10.2) mg/dL Total Bilirubin 0.6 (0.2-1.3) mg/dL AST 30 (14-36) IU/L ALT 26 (<35) IU/L Alkaline Phosphatase 106 (38-126) U/L Total Protein 7.7 (6.3-8.2) g/dL Albumin 4.3 (3.5-5.0) g/dL Globulin 3.4 (1.7-4.1) g/dL Albumin/Globulin Ratio 1.3 (1.0-2.8) Lipase 58 (23-300) U/L Serum , Qual (Negative) Urine RBC 1-5/hpf (0-5/HPF) Urine WBC 30-100/hpf H (0-5/HPF) Ur Squamous Epith Cells 1-5 /hpf (0-5/HPF) Ur Renal Epithelial Cell 0-1/hpf (0-1/HPF) Amorphous Sediment 1+ Urine Bacteria Occasional (0-1) (None) Urine Mucus 1+ H (Negative) Ur Culture Indicated? Culture not indicate 05/27/20 Range/Units 19:50 WBC (4.5-11.0) X10^3/uL RBC (4.0-5.2) X10^6/uL Hgb (12.0-16.0) g/dL Hct (36-46) % MCV (80-100) fL MCH (26-34) PG MCHC (30-36) % RDW (11.6-14.8) % Plt Count (150-400) X10^3/uL Neut % (Auto) (50-75) % Lymph % (Auto) (25-40) % [place] % (Auto) (3-14) % Eos % (Auto) (2-4) % Baso % (Auto) (0-2) % Neut # (Auto) (6803-0153) /uL Lymph # (Auto) (1411-5283) /uL [place] # (Auto) (0-900) /uL Eos # (Auto) (0-450) /uL Baso # (Auto) (0-100) /uL Sodium (137-145) mmol/L Potassium (3.4-5.1) mmol/L Chloride (98-107) mmol/L Carbon Dioxide (22-32) mmol/L BUN (7-17) mg/dL Creatinine (0.52-1.04) mg/dL Estimated GFR (>60) mL/min BUN/Creatinine Ratio (6-22) Glucose (70-100) mg/dL Calcium (8.4-10.2) mg/dL Total Bilirubin (0.2-1.3) mg/dL AST (14-36) IU/L ALT (<35) IU/L Alkaline Phosphatase (38-126) U/L Total Protein (6.3-8.2) g/dL Albumin (3.5-5.0) g/dL Globulin (1.7-4.1) g/dL Albumin/Globulin Ratio (1.0-2.8) Lipase (23-300) U/L Serum , Qual Negative (Negative) Urine RBC (0-5/HPF) Urine WBC (0-5/HPF) Ur Squamous Epith Cells (0-5/HPF) Ur Renal Epithelial Cell (0-1/HPF) Amorphous Sediment Urine Bacteria (None) Urine Mucus (Negative) Ur Culture Indicated? Imaging Data CT scan - abdomen/pelvis: Radiologist's Impression: Normal appendix No urolith or hydronephrosis ECG Data Attestation: I personally reviewed and interpreted this ECG as follows: Prior ECG tracings: not available for review Interpretation: Sinus rhythm Ventricular rate of 64 Normal axis Normal QRS Normal QTC No ST T wave changes MDM Narrative Medical decision making narrative: Patient does have a urinalysis that is con sistent with a urinary tract infection. She did have right lower quadrant abdominal pain. The preliminary read from radiologist shows normal appendix and no other acute pathology. Low suspicion for pyelonephritis. Patient given 1st dose of antibiotics here in the ER and was sent home with prescription for antibiotics. Feel we can hold on further workup for now. She was given return precautions and follow-up instructions. She understanding and agreement Discharge Plan Departure Patient Disposition: Home Clinical Impression: Urinary tract infection Instructions: DI for Urinary Tract Infection (UTI) Activity Restrictions/Additional Instructions: A prescription further remaining course of the antibiotics was electronically transmitted to safely in [place]. Please start taking in as directed. You were given your 1st dose here in the emergency department. Contact her primary provider for follow-up. Return to the emergency department for any new or worsening symptoms Prescriptions: New cephalexin 500 mg capsule 500 mg PO BID 3 Days Qty: 6 RF: 0 No Action gabapentin [Neurontin] 300 mg capsule 300 mg PO TID Qty: 90 RF: 1 hydroxyzine HCl 25 mg tablet 25 mg PO QID PRN (Reason: anxiety) Qty: 90 RF: 2 (DME) Disabled Parking Qty: 1 RF: 0 trazodone 50 mg tablet 25 mg PO BEDTIME PRN (Reason: insomnia) Qty: 30 RF: 2 levothyroxine [Synthroid] 200 mcg tablet 200 mcg PO DAILY RF: 0 ketorolac 10 mg tablet 10 mg PO Q6H PRN (Reason: pain) Qty: 20 RF: 0 Referrals: Fauzia Baez ARNP [Primary Care Provider] -
--- NOTE | 2020-05-27 19:42 | DI.CT.S_ITS ---
PROCEDURE: CT ABDOMEN PELVIS W CON INDICATIONS: RLQ ABD pain concern for appy. TECHNIQUE: After the administration of intravenous contrast, 5 mm thick sections acquired from the diaphragm to the symphysis. 5 mm coronal and sagittal reformats were acquired. For radiation dose reduction, the following was used: automated exposure control, adjustment of mA and/or kV according to patient size. COMPARISON: [facility], , PELVIC COMPLETE, 10/29/2019, 19:26. FINDINGS: Image quality: Excellent. ABDOMEN: Lung bases: Lung bases are clear. Heart size is normal. Solid organs: Liver is normal in size and enhancement. Gallbladder is unremarkable. Biliary system is non dilated. Pancreas enhances normally. Spleen is normal in size and enhancement. No adrenal nodules. Kidneys demonstrate normal size and enhancement, without hydronephrosis. Peritoneum and bowel: Stomach is mostly decompressed. Bowel loops demonstrate normal wall thickness and caliber. Appendix is not dilated, (2/73). No inflammatory change is identified. No free fluid or air. Nodes and vessels: No retroperitoneal or mesenteric adenopathy by size criteria. Aorta and inferior vena cava are normal in size. Miscellaneous: Tiny fat containing periumbilical hernia. PELVIS: Genitourinary: Bladder wall thickness is normal. Anteverted uterus. Trace free fluid in the pelvis. Small enhancing focus in the right ovary, (2/70). Miscellaneous: No inguinal hernias or adenopathy. Bones: No suspicious bony lesions. No vertebral body compression fractures. IMPRESSION: 1. Suspect right corpus luteum or ovarian cyst. Trace free fluid in the pelvis which is likely physiologic. -Consider further evaluation with pelvic ultrasound. 2. Nondilated appendix. No bowel obstruction. 3. No kidney stone seen. This report is concordant with the overnight preliminary interpretation. Dictated by: Mitesh Carrera M.D. on 05/27/2020 at 22:18 Approved by: Mitesh Carrera M.D. on 05/27/2020 at 22:26
[2020-05-27] MEDS: KETOROLAC 60 MG/2 ML VIAL 30 MG IV (20:00)
[2020-05-27] MEDS: SODIUM CHLORIDE 0.9% 1,000 ML 1000 ML IV (20:00)
[2020-05-27] MEDS: ONDANSETRON 4 MG/2 ML INJ IV (20:00)
[2020-05-27 20:11] LABS: Add Manual Diff / Slide Review NO; Basophils Absolute Auto 0 /uL (0-100); Basophils Percent Auto 0.1 % (0-2); Eosinophils Absolute Auto 200 /uL (0-450); Eosinophils Percent Auto 2.2 % (2-4); Hematocrit 39.6 % (36-46); Hemoglobin 12.7 g/dL (12.0-16.0); Lymphocytes Absolute Auto 1800 /uL (1100-4500); Lymphocytes Percent Auto 27.2 % (25-40); Mean Corpuscular Hemoglobin 26.4 PG (26-34); Mean Corpuscular Volume 82.6 fL (80-100); Monocytes Absolute Auto 600 /uL (0-900); Monocytes Percent Auto 8.1 % (3-14); Neutrophils Absolute Auto 4200 /uL (1500-7000); Neutrophils Percent Auto 62.4 % (50-75); Platelet Count 325 X10^3/uL (150-400); Red Cell Distribution Width 14.5 % (11.6-14.8); White Blood Cell Count 6.8 X10^3/uL (4.5-11.0)
[2020-05-27 20:17] LABS: Pregnancy Test Serum,Qual Negative (Negative)
[2020-05-27 20:18] LABS: Alanine Aminotransferase 26 IU/L (<35); Albumin 4.3 g/dL (3.5-5.0); Albumin Globulin Ratio 1.3 (1.0-2.8); Alkaline Phosphatase 106 U/L (38-126); Aspartate Aminotransferase 30 IU/L (14-36); BUN Creatinine Ratio 14.3 (6-22); Bilirubin Total 0.6 mg/dL (0.2-1.3); Blood Urea Nitrogen 10 mg/dL (7-17); Calcium 9.4 mg/dL (8.4-10.2); Carbon Dioxide 23 mmol/L (22-32); Chloride 106 mmol/L (98-107); Estimated Glomerular Filt Rate > 60.0 mL/min (>60); Globulin 3.4 g/dL (1.7-4.1); Glucose 93 mg/dL (70-100); HEMOLYSIS 16 (0-50); Lipase 58 U/L (23-300); Potassium 4.1 mmol/L (3.4-5.1); Sodium 139 mmol/L (137-145); Total Protein 7.7 g/dL (6.3-8.2)
[2020-05-27 20:31] VITALS: BP 134/80; PULSE 75; O2SAT 100
--- NOTE | 2020-05-27 20:38 | PC.NURSE ---
Pt reports Left arm feeling numb moving up arm and now has chest pain. Provider at bedside, new orders given
[2020-05-27] MEDS: PANTOPRAZOLE 40 MG VIAL IV (20:45)
[2020-05-27 21:00] VITALS: BP 120/62; PULSE 75; RESP 25; O2SAT 100
[2020-05-27 21:30] VITALS: PULSE 67; RESP 20; O2SAT 100
[2020-05-27 22:00] VITALS: PULSE 62; RESP 20; O2SAT 100
[2020-05-27 22:15] VITALS: BP 112/72; PULSE 71; RESP 19; O2SAT 100
[2020-05-27] MEDS: cephALEXin 250 MG CAPSULE 500 MG PO (22:24)
[2020-05-27] MEDS: ONDANSETRON 4 MG ODT PREPACK 1 BOTTLE MISC (22:24)
== END 2020-05-27 22:33 | disposition home or self-care (01) ==
PROVIDERS: Emergency Provider Emergency Medicine; PCP Registered Nurse
DX: N39.0 Urinary tract infection, site not specified (principal); R11.0 Nausea
CPT/HCPCS: 36415; 74177; 80053; 81015; 83690; 84703; 85025; 87077; 87086; 87186; 93005; 93010; 96361; 96374; 96375; 99284; C9113; J1885; J2405; Q9967

== ENCOUNTER 2020-10-17 20:41 | Emergency (ER) | payer OTHER, SELFPAY ==
[2020-10-17] VITALS (8 sets, daily range): BP systolic 118–157; BP diastolic 70–94; PULSE 73–120; RESP 17–37; O2SAT 93–100; BMI 35.7
--- NOTE | 2020-10-17 21:03 | DI.CT.S_ITS ---
PROCEDURE: CT HEAD/BRAIN WO CON INDICATIONS: R/O stroke TECHNIQUE: Noncontrast 4.5 mm thick angled axial sections acquired from the foramen magnum to the vertex, with coronal and sagittal reformats. For radiation dose reduction, the following was used: automated exposure control, adjustment of mA and/or kV according to patient size. COMPARISON: [facility], CT, CT HEAD/BRAIN WO CON, 08/23/2017, 18:02. FINDINGS: Image quality: Suboptimal as the frontal regions are partially obscured by artifact CSF spaces: Basal cisterns are patent. No extra-axial fluid collections. Ventricles are normal in size and shape. Brain: No midline shift. No intracranial masses or hemorrhage. Samano-white matter interface is normal. Skull and face: Calvarium and visualized facial bones are intact, without suspicious lesions. Sinuses: Visualized sinuses and mastoids are clear. IMPRESSION: Suboptimal evaluation as the frontal regions are partially obscured by uncontrollable motion artifact. Otherwise, no gross intracranial abnormality. Dictated by: Amarjit Rivera M.D. on 10/17/2020 at 21:41 Approved by: Amarjit Rivera M.D. on 10/17/2020 at 21:44
[2020-10-17] MEDS: SODIUM CHLORIDE 0.9% 1,000 ML 150 ML IV (21:22)
--- NOTE | 2020-10-17 21:28 | DI.CT.S_ITS ---
PROCEDURE: CT ANGIO HEAD AND NECK INDICATIONS: cant move left side TECHNIQUE: After the administration of intravenous contrast, 1 mm thick sections acquired from the aortic arch through the [place]. Post-contrast 4.5 mm thick sections then re-acquired from the foramen magnum to the vertex. 3-dimensional gdvthqt-ftxkjbbfl-jeeadetxje (MIP) and/or volume rendering reformats were acquired of the central intracranial vasculature and neck separately. COMPARISON: None. FINDINGS: Image quality: Excellent. BRAIN: CSF spaces: Ventricles are normal in size and shape. Basal cisterns are patent. No extra-axial fluid collections. Brain: No midline shift. No intracranial bleeds or masses. Samano-white matter interface appears intact. Skull and face: Calvarium and facial bones appear intact, without suspicious lesions. Orbits appear normal. Sinuses: Trace mucosal thickening in the maxillary sinuses. The mastoids are clear. HEAD CT ANGIOGRAPHY: Anterior circulation: Intracranial internal carotid arteries are normal in size and flow. The flow within the paired anterior cerebral arteries is normal and symmetric. The flow within the middle cerebral arteries is normal and symmetric. The anterior communicating artery is seen. No aneurysms are seen. Posterior circulation: Visualized portions of the vertebral arteries demonstrate normal caliber, and join to form a normal appearing basilar artery. Flow within the posterior cerebral arteries is normal and symmetric. No aneurysms are seen. NECK CT ANGIOGRAPHY: Carotid system: The great vessels demonstrate a conventional anatomy as they arise from the aortic arch. The origins of the common carotid arteries appear patent. The common carotid arteries demonstrate normal caliber and courses. The bifurcation regions are both widely patent. The internal carotid arteries demonstrate normal calibers and courses. Posterior circulation: The origins of the vertebral arteries both appear widely patent. The more superior extracranial portions of both vertebral arteries also demonstrate normal courses and calibers. They join to form a normal appearing basilar artery. Soft tissues: Visualized neck soft tissues demonstrate no suspicious abnormalities. Bones: No suspicious bony lesions. Visualized cervical spine appears normally aligned. IMPRESSION: 1. No large vessel occlusion. 2. No significant stenosis in the internal carotid arteries. 3. No acute abnormality identified. This report is concordant with the overnight preliminary interpretation. Any quantitative measurements of stenosis were performed using NASCET criteria. Dictated by: Mitesh Carrera M.D. on 10/18/2020 at 8:41 Approved by: Mitesh Carrera M.D. on 10/18/2020 at 8:49
[2020-10-17 21:32] LABS: Acetaminophen < 10 ug/mL (10-30); Salicylate < 1.0 mg/dL (<20)
[2020-10-17 21:35] LABS: Alanine Aminotransferase 20 IU/L (<35); Albumin 4.3 g/dL (3.5-5.0); Albumin Globulin Ratio 1.3 (1.0-2.8); Alkaline Phosphatase 95 U/L (38-126); Aspartate Aminotransferase 26 IU/L (14-36); BUN Creatinine Ratio 9.5 (6-22); Bilirubin Total 0.4 mg/dL (0.2-1.3); Blood Urea Nitrogen 8 mg/dL (7-17); Calcium 9.1 mg/dL (8.4-10.2); Carbon Dioxide 24 mmol/L (22-32); Chloride 108 mmol/L (98-107); Creatine Kinase 86 U/L (30-135); Estimated Glomerular Filt Rate > 60.0 mL/min (>60); Ethanol (ETOH) < 10 mg/dL; Globulin 3.2 g/dL (1.7-4.1); Glucose 106 mg/dL (70-100); HEMOLYSIS < 15 (0-50); Hematocrit 37.3 % (36-46); Hemoglobin 12.1 g/dL (12.0-16.0); Mean Corpuscular HGB Conc 32.4 % (30-36); Mean Corpuscular Hemoglobin 26.9 PG (26-34); Platelet Count 381 X10^3/uL (150-400); Potassium 3.5 mmol/L (3.4-5.1); Red Cell Distribution Width 15.4 % (11.6-14.8); Sodium 138 mmol/L (137-145); Total Protein 7.5 g/dL (6.3-8.2); White Blood Cell Count 7.1 X10^3/uL (4.5-11.0)
[2020-10-17 21:36] LABS: Add Manual Diff / Slide Review YES
[2020-10-17 21:47] LABS: Troponin I < 0.012 ng/mL (0.01-0.034)
[2020-10-17 21:52] LABS: Prolactin 35.4 ng/mL (3.0-18.6)
[2020-10-17 21:57] LABS: UR Morphine/Opiate cutoff 300 Negative (Negative); Ur Creatinine 20 (Normal); Ur Specific Gravity 1.015 (Normal); Urine Amphetamines Negative (Negative); Urine Barbiturates Negative (Negative); Urine Benzodiazepines Negative (Negative); Urine Cocaine Negative (Negative); Urine MDMA Negative (Negative); Urine Methadone Negative (Negative); Urine Methamphetamines Negative (Negative); Urine Oxycodone Negative (Negative); Urine Phencyclidine Negative (Negative); Urine Tetrahydrocannabinol Negative (Negative); Urine Tricyclic Antidepressant Negative (Negative); Urine pH 5 (Normal)
--- NOTE | 2020-10-17 22:09 | PC.NURSE ---
Pt able to move left arm and leg off bed, squeezed nurses hand, yawned and able to move face, smile equal, eyebrow raise equal.
[2020-10-17 22:30] LABS: Anisocytosis 1+; Neutrophils Absolute Manual 4189 /uL (3000-5900); Total Cells Counted 100
--- NOTE | 2020-10-17 22:57 | PC.NURSE ---
Pt alert, awake, and speaking clearly. States similar episodes have happened in the past and despite follow-ups has not found an answer. Able to move her arms and legs against resistance, strong clinical reviewer.
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
[2020-10-17] MEDS: KETOROLAC 30 MG/ML VIAL IV (23:52)
[2020-10-18] VITALS: PULSE 69; RESP 16; O2SAT 100
[2020-10-18 00:01] VITALS: BP 135/62; PULSE 70; RESP 22; O2SAT 100
[2020-10-18 00:30] VITALS: BP 123/58; PULSE 68; RESP 19; O2SAT 99
[2020-10-18 01:19] VITALS: TEMP 36.6
--- NOTE | 2020-10-18 16:41 | PC.NURSE ---
Visit note faxed to [facility] for continuity of care.
== END 2020-10-18 01:21 | disposition home or self-care (01) ==
PROVIDERS: Emergency Provider Emergency Medicine
DX: G43.009 Migraine without aura, not intractable, without status migrainosus (principal)
CPT/HCPCS: 36415; 70450; 70496; 70498; 80053; 80305; 80320; 80329; 81003; 81025; 82550; 82962; 84146; 84484; 85007; 85025; 93005; 96361; 96374; 99285; G0480; J1885; Q9967

== ENCOUNTER → 2020-10-27 12:10 | Outpatient (CLI) | payer OTHER, SELFPAY ==
[2020-10-27 13:48] LABS: Free T3, Triiodothyronine Free 2.94 pg/mL (2.77-5.27)
[2020-10-27 13:50] LABS: Prolactin 12.8 ng/mL (3.0-18.6)
[2020-10-27 14:02] LABS: Thyroid Stimulating Hormone 25.2 uIU/mL (0.47-4.68)
[2020-10-27 15:34] LABS: Follicle Stimulating Hormone 5.04 mIU/mL; Luteinizing Hormone 7.93 mIU/mL
[2020-10-29 16:13] LABS: Estrogen 391 pg/mL (.)
[2020-10-30 11:16] LABS: Levetiracetam Keppra 15.8 ug/mL (10.0-40.0)
== END ==
PROVIDERS: PCP Family Medicine; Referring Provider Family Medicine; Visit Provider Family Medicine
DX: E06.3 Autoimmune thyroiditis (principal); F41.1 Generalized anxiety disorder; F44.5 Conversion disorder with seizures or convulsions
CPT/HCPCS: 36415; 80177; 82672; 83001; 83002; 84146; 84439; 84443; 84481

== ENCOUNTER → 2020-11-19 11:27 | Outpatient (CLI) | payer OTHER, SELFPAY ==
--- NOTE | 2020-11-19 11:29 | DI.MRI.S_ITS ---
PROCEDURE: MR HEAD/BRAIN WO/W CON INDICATIONS: seizure activity, elevated prolactin, thyroid instability TECHNIQUE: Noncontrast axial T1 spin echo, axial T2 fast spin echo, sagittal and axial FLAIR, axial gradient echo, axial diffusion and ADC, coronal thin-slice T2 FSE through the brain. Optional contrast, followed by axial and coronal 3D VIBE or T1 spin echo with fat saturation sequences through the brain. COMPARISON: [facility], MR, BRAIN WITHOUT CONTRAST, 02/18/2016, 16:40. [facility], CT, CT ANGIO HEAD AND NECK, 10/17/2020, 21:49. [facility], CT, CT HEAD/BRAIN WO CON, 10/17/2020, 21:04. FINDINGS: Image quality: Diagnostic, with note made of motion artifact. CSF spaces: Ventricles are normal in size and shape. Basal cisterns are patent. No extra-axial fluid collections. Brain: No intracranial bleeds or mass effects. No abnormal intracranial enhancement. Samano-white matter interface appears intact. Diffusion weighted images demonstrate no acute ischemic insults. Brainstem appear normal. Normal intravascular flow voids are present. The hippocampal regions appear normal and symmetric in morphology. Skull and face: Calvarial marrow signal is normal. Orbits appear normal. Sinuses: Sinuses and mastoids are clear. IMPRESSION: A seizure focus is not identified. The hippocampal regions demonstrate a normal, symmetric appearance. No masses or abnormal enhancement can be seen. No acute intracranial hemorrhage is seen. No findings of acute or subacute infarction can be seen. Dictated by: Karlos Ocampo M.D. on 11/19/2020 at 11:24 Approved by: Karlos Ocampo M.D. on 11/19/2020 at 11:26
== END ==
PROVIDERS: PCP Family Medicine; Referring Provider Family Medicine; Visit Provider Family Medicine
DX: R79.89 Other specified abnormal findings of blood chemistry (principal); R56.9 Unspecified convulsions
CPT/HCPCS: 70553

== ENCOUNTER → 2020-12-03 10:37 | Outpatient (CLI) | payer OTHER, SELFPAY ==
--- NOTE | 2020-12-03 10:38 | DI.US.S_ITS ---
PROCEDURE: US ABDOMEN COMPLETE INDICATIONS: PELVIC PAIN TECHNIQUE: Real-time scanning was performed of the abdominal and retroperitoneal organs, with image documentation. COMPARISON: None. FINDINGS: Liver: Liver is normal in size. Diffusely increased liver parenchymal echotexture is seen. Right hepatic lobe appears slightly prominent in size compared to the left lobe. No discrete hepatic lesion is noted. Gallbladder: There is no gallstone. No gallbladder wall thickening or pericholecystic fluid. No sonographic Phillips sign. Biliary ducts: Intrahepatic bile ducts are non-dilated. Extrahepatic bile duct caliber measures 4.3 mm. Normal is 6-7 mm or less in diameter, or 10 mm or less post-cholecystectomy. Pancreas: Visualized portions of the pancreas are sonographically normal. Spleen: Spleen is normal in size and homogeneous in echotexture. Kidneys: Kidneys are normal in size and echotexture. Right kidney measures 10.7 cm long; left kidney measures 10.8 cm long. Minimal right-sided pelviectasis is seen. No left-sided hydronephrosis. 9 x 11 x 10 mm hyperechoic and solid appearing structure is noted in midpole of left kidney without internal vascularity. No other Aorta: Visualized aorta is normal in caliber at less than 3 cm. Iliacs: Proximal common iliac arteries are normal in caliber at less than 2.5 cm. IVC: Intrahepatic inferior vena cava is patent. Miscellaneous: No free abdominal fluid. IMPRESSION: 1. Hepatic steatosis, no discrete hepatic lesion. 2. Minimal right-sided pelviectasis. No left-sided hydronephrosis. Possible 1.1 cm angiomyolipoma in midpole of left kidney as above. 3. Rest of the exam is unremarkable. Dictated by: Jose Alfred M.D. on 12/03/2020 at 12:14 Approved by: Jose Alfred M.D. on 12/03/2020 at 12:17
--- NOTE | 2020-12-03 10:38 | DI.US.S_ITS ---
PROCEDURE: US PELVIC COMPLETE INDICATIONS: PELVIC PAIN TECHNIQUE: Real-time scanning was performed of the pelvic organs, with image documentation. Additional endovaginal scanning was necessary due to incomplete visualization of the adnexal and endometrial structures by transabdominal scanning. COMPARISON: [facility], PELVIC COMPLETE, 10/29/2019, 19:26. FINDINGS: Uterus: Uterus is normal in size at 11.3 x 6.5 x 4.0 cm. The endometrium measures 6.9 mm in combined thickness. Ovaries: Right ovary measures 2.2 x 1.9 x 1.7 cm. Left ovary measures 2.7 x 2.6 x 1.6 cm. Ovaries only seen transabdominally. Other: No pathologic free abdominal or pelvic fluid. IMPRESSION: Unremarkable pelvic ultrasound. Dictated by: Ham Casillas M.D. on 12/03/2020 at 12:31 Approved by: Ham Casillas M.D. on 12/03/2020 at 12:33
== END ==
PROVIDERS: PCP Family Medicine; Referring Provider Registered Nurse; Visit Provider Registered Nurse
DX: R10.2 Pelvic and perineal pain (principal); K76.0 Fatty (change of) liver, not elsewhere classified
CPT/HCPCS: 76700; 76830; 76856

== ENCOUNTER → 2020-12-05 11:54 | Outpatient (CLI) | payer OTHER, SELFPAY ==
[2020-12-07 12:21] LABS: ANA Screen, IFA Negative (.)
== END ==
PROVIDERS: PCP Family Medicine; Referring Provider Family Medicine; Visit Provider Family Medicine
DX: R10.2 Pelvic and perineal pain (principal); R10.84 Generalized abdominal pain; R79.89 Other specified abnormal findings of blood chemistry
CPT/HCPCS: 36415; 86038

== ENCOUNTER → 2020-12-08 09:35 | Outpatient (CLI) | payer OTHER, SELFPAY ==
[2020-12-08 11:03] LABS: Appearance Urine UA CLEAR; Bilirubin Urine UA NEGATIVE (NEGATIVE); Color Urine UA YELLOW; Glucose Urine UA NEGATIVE (Negative); Ketones Urine UA NEGATIVE (NEGATIVE); Leukocyte Esterase Urine UA NEGATIVE (NEGATIVE); Nitrite Urine UA NEGATIVE (Negative); Occult Blood Urine UA NEGATIVE (Negative); Protein Urine UA NEGATIVE (Negative); Specific Gravity Urine UA 1.025 (1.000-1.035); Urobilinogen Urine UA 0.2 E.U./dL (0.2)
[2020-12-08 11:22] LABS: Bacteria Urine None Seen; Culture Indicated Urine Cult Not Indicated; RBC Urine None Seen (0-5/HPF); Urine Comments Microscopic Normal; WBC Urine None Seen (0-5/HPF)
== END ==
PROVIDERS: PCP Family Medicine; Referring Provider Family Medicine; Visit Provider Family Medicine
DX: R10.9 Unspecified abdominal pain (principal)
CPT/HCPCS: 81001

== ENCOUNTER 2020-12-23 21:31 | Emergency (ER) | payer OTHER, SELFPAY ==
[2020-12-23] VITALS (7 sets, daily range): BP systolic 115–202; BP diastolic 58–96; PULSE 88–111; RESP 16–31; TEMP 36.8; O2SAT 99–100; BMI 38.2
--- NOTE | 2020-12-23 21:48 | ED_ITS ---
HPI - Chest Pain General Chief Complaint: Chest Pain Stated Complaint: kidney pain, chest and lung pain, headache Time Seen by Provider: 12/23/20 21:45 Source: patient Mode of arrival: Wheelchair Limitations: no limitations History of Present Illness HPI narrative: 30F nonsmoker with complex medical history presents with family in the chief complaint of various symptoms abdomen going on for quite some time but seemed to maybe worsened today. She has had headaches and seizure like activity for many months and has had referrals to Neurology. She has no change in her medications. She denies any fever chills. She has no neck pain. Also for quite some time she complains of kidney pain and is starting to think that it seems to get worse when she eats certain types of food. She has had extensive workups including urine test, lab work and imaging but thus far no evidence of an obvious cause. She states that any time she eats or drinks, which has become increasingly difficult due to a poor appetite and worsening of back pain. She denies any rash. She has had no change in bowel habits. She states that she has seen her PCP and has multiple referrals out to Endocrine, Rheumatology, Neurology among others given the complexity and difficulty in achieving a diagnosis. Additionally she complains of episodes of chest pain and shortness of breath off and on for many weeks to months. She denies recent travel or injury. She denies any history of blood clot Related Data Home Medications Medication Instructions Recorded Confirmed levothyroxine 200 mcg tablet 200 mcg PO DAILY 02/06/20 12/08/20 (Synthroid) Previous Rx's Medication Instructions Recorded levetiracetam 500 mg tablet 500 mg PO BID #120 tab 11/20/20 Disabled Parking Permit #1 ea 12/08/20 Allergies Allergy/AdvReac Type Severity Reaction Status Date / Time tramadol [TRAMADOL] Allergy Severe anaphylaxis Verified 12/23/20 21:46 amoxicillin [From AUGMENTIN] Allergy Mild itching Verified 12/23/20 21:46 clavulanic acid Allergy Mild itching Verified 12/23/20 21:46 [From AUGMENTIN] Sulfa (Sulfonamide Allergy Mild itching Verified 12/23/20 21:46 Antibiotics) [SULFA (SULFONAMIDE ANTIBIOTICS)] hydrocodone [HYDROCODONE] AdvReac Mild nausea Verified 12/23/20 21:46 oxycodone [OXYCODONE] AdvReac Mild nausea Verified 12/23/20 21:46 Review of Systems Review of Systems Narrative: GENERAL: See HPI HEENT: Denies sinus pain, ear pain, sore throat, difficulty swallowing, dizziness. RESPIRATORY: See HPI CARDIOVASCULAR: See HPI GASTROINTESTINAL: Denies nausea, vomiting, abdominal pain, diarrhea, constipation, melena. : See HPI MUSCULOSKELETAL: denies weakness, joint pain, or bony pain SKIN: Denies rash, skin lesions, or other NEUROLOGIC: Denies weakness, headache, numbness, change in speech, confusion, seizures, incoordination. PSYCHIATRIC: No concerning psychosocial issues. 12 point review of systems is negative except for those stated above Patient History Medical History (Updated 12/24/20 @ 00:18 by Oumar Staples DO) Ataxia Balance problem Celiac disease/sprue (2011) Edema Elevated prolactin level Elevated TSH Functional neurological symptom disorder with attacks or seizures Hypothyroidism (2005) Insomnia Morbid obesity with BMI of 40.0-44.9, adult Muscle weakness (generalized) Observed seizure-like activity Photosensitivity Pseudoseizure Surgical History Anesthesia complication History of bilateral tubal ligation Status post delivery (08/07/11) Family History Father Age: 54 Hypertension High cholesterol Mother Age: 59 Skin cancer Grandmother Age: 75 Diabetes mellitus Social History marital status: household members: spouse and children (daughter) housing: house pets and animals: Yes (2 dogs 1 cat) jonna/restorationism: Advent seatbelt use: always helmet use: Yes water heater temp set < 120 deg: Yes Smoking Status: Never smoker alcohol intake: never substance use type: does not use Smoking Status: Never smoker alcohol intake frequency: holidays/special occasions only Substance Use Type: does not use Exam Narrative Exam Narrative: GENERAL: [30] year old patient appears stated age. Well-developed patient, in mild distress. HEAD: Atraumatic. Normocephalic. EYES: Pupils equal round and reactive. Extraocular motions intact. No scleral icterus. No injection or drainage. ENT: Nose without bleeding, purulent drainage. Throat without erythema, tonsillar hypertrophy or exudate. Airway patent. NECK: Trachea midline. Non tender CARDIOVASCULAR: Regular rate and rhythm without murmurs, gallops, or rubs. RESPIRATORY: Clear to auscultation. Breath sounds equal bilaterally. No wheezes, rales, or rhonchi. GASTROINTESTINAL: Abdomen soft, non-tender, nondistended. EXTREMITIES: No edema or joint tenderness. BACK: Nontender without deformity or crepitance. No flank tenderness. NEURO: AOx3. SKIN: No rash or erythema of visible areas Initial Vital Signs Initial Vital Signs: Vital Signs Temperature 98.2 F 12/23/20 21:41 Pulse Rate 103 H 12/23/20 21:41 Respiratory Rate 16 12/23/20 21:41 Blood Pressure 202/96 H 12/23/20 21:41 Pulse Oximetry 100 12/23/20 21:41 Course Orders Ordered: ED Orders 12/23/20 22:00 EKG-12 Lead Routine 12/23/20 22:05 XR chest 1V Stat 12/23/20 22:20 Complete Blood Count AUTO DIFF Stat Comprehensive Metabolic Panel Stat D Dimer Stat Lipase Stat NT-proBNP (BNP-Adult 18+) Stat TSH w/ Reflex to FT4 Stat Troponin & CK Cardiac Panel Stat 12/23/20 22:50 CT abdomen pelvis w con Stat CT angio chest PE protocol Stat Discontinued Medications Sodium Chloride (Normal Saline 0.9%) 1,000 mls @ 150 mls/hr IV CONT CLOVIS Last Infusion: 12/24/20 00:36 Dose: 150 mls/hr Documented by: Infusion: 12/24/20 00:36 Dose: 150 mls/hr Documented by: Admin: 12/23/20 22:19 Dose: 150 mls/hr Documented by: REG Vital Signs Vital signs: Vital Signs - 8 hr 12/23/20 21:41 12/23/20 22:04 12/23/20 22:06 Temperature 98.2 F Pulse Rate 103 H 111 H 105 H Respiratory Rate 16 24 Blood Pressure 202/96 H 162/89 H Pulse Oximetry 100 100 100 12/23/20 22:30 12/23/20 23:00 12/23/20 23:30 Temperature Pulse Rate 104 H 103 H 93 H Respiratory Rate 31 H 21 19 Blood Pressure 169/88 H 149/69 H Pulse Oximetry 100 99 100 12/23/20 23:31 12/24/20 00:00 12/24/20 00:30 Temperature Pulse Rate 88 95 H 90 Respiratory Rate 22 22 Blood Pressure 115/58 L 119/71 119/64 Pulse Oximetry 100 99 98 MDM - Chest Pain Lab Data Result diagrams: 12/23/20 22:20 12/23/20 22:20 Labs: Lab Results 12/23/20 12/23/20 12/23/20 Range/Units 22:20 22:20 22:20 WBC 7.6 (4.5-11.0) X10^3/uL RBC 4.43 (4.0-5.2) X10^6/uL Hgb 12.0 (12.0-16.0) g/dL Hct 36.5 (36-46) % MCV 82.4 (80-100) fL MCH 27.1 (26-34) PG MCHC 32.9 (30-36) % RDW 14.0 (11.6-14.8) % Plt Count 325 (150-400) X10^3/uL Neut % (Auto) 61.2 (50-75) % Lymph % (Auto) 27.7 (25-40) % [place] % (Auto) 7.7 (3-14) % Eos % (Auto) 2.6 (2-4) % Baso % (Auto) 0.8 (0-2) % Neut # (Auto) 4600 (0111-2453) /uL Lymph # (Auto) 2100 (9044-2903) /uL [place] # (Auto) 600 (0-900) /uL Eos # (Auto) 200 (0-450) /uL Baso # (Auto) 100 (0-100) /uL D-Dimer 259 H (<230) ng/mL Sodium 138 (137-145) mmol/L Potassium 3.4 (3.4-5.1) mmol/L Chloride 103 (98-107) mmol/L Carbon Dioxide 28 (22-32) mmol/L BUN 11 (7-17) mg/dL Creatinine 0.82 (0.52-1.04) mg/dL Estimated GFR > 60.0 (>60) mL/min BUN/Creatinine Ratio 13.4 (6-22) Glucose 101 H (70-100) mg/dL Calcium 9.4 (8.4-10.2) mg/dL Total Bilirubin 0.5 (0.2-1.3) mg/dL AST 26 (14-36) IU/L ALT 26 (<35) IU/L Alkaline Phosphatase 90 (38-126) U/L Total Creatine Kinase 53 (30-135) U/L CK-MB (CK-2) TNP CK-MB (CK-2) Rel Index TNP Troponin I < 0.012 (0.01-0.034) ng/mL NT-Pro-B Natriuret Pep 49 (<125) pg/mL Total Protein 7.6 (6.3-8.2) g/dL Albumin 4.3 (3.5-5.0) g/dL Globulin 3.3 (1.7-4.1) g/dL Albumin/Globulin Ratio 1.3 (1.0-2.8) Lipase 101 (23-300) U/L TSH (0.47-4.68) uIU/mL /17/ Range/Units 22:20 WBC (4.5-11.0) X10^3/uL RBC (4.0-5.2) X10^6/uL Hgb (12.0-16.0) g/dL Hct (36-46) % MCV (80-100) fL MCH (26-34) PG MCHC (30-36) % RDW (11.6-14.8) % Plt Count (150-400) X10^3/uL Neut % (Auto) (50-75) % Lymph % (Auto) (25-40) % [place] % (Auto) (3-14) % Eos % (Auto) (2-4) % Baso % (Auto) (0-2) % Neut # (Auto) (9043-3319) /uL Lymph # (Auto) (4678-6838) /uL Oldham # (Auto) (0-900) /uL Eos # (Auto) (0-450) /uL Baso # (Auto) (0-100) /uL D-Dimer (<230) ng/mL Sodium (137-145) mmol/L Potassium (3.4-5.1) mmol/L Chloride (98-107) mmol/L Carbon Dioxide (22-32) mmol/L BUN (7-17) mg/dL Creatinine (0.52-1.04) mg/dL Estimated GFR (>60) mL/min BUN/Creatinine Ratio (6-22) Glucose (70-100) mg/dL Calcium (8.4-10.2) mg/dL Total Bilirubin (0.2-1.3) mg/dL AST (14-36) IU/L ALT (<35) IU/L Alkaline Phosphatase (38-126) U/L Total Creatine Kinase (30-135) U/L CK-MB (CK-2) CK-MB (CK-2) Rel Index Troponin I (0.01-0.034) ng/mL NT-Pro-B Natriuret Pep (<125) pg/mL Total Protein (6.3-8.2) g/dL Albumin (3.5-5.0) g/dL Globulin (1.7-4.1) g/dL Albumin/Globulin Ratio (1.0-2.8) Lipase (23-300) U/L TSH 0.98 (0.47-4.68) uIU/mL Imaging Data CT scan - chest: Radiologist's Impression: [place] [address] CT Scan Report Signed Patient: Adrienne Quintero MR#: [id number] : 1990 Acct:[id number] Age/Sex: 30 / F Date of Service: 12/23/20 Loc: ED Accession Number: [id number] ?? Procedure: CT angio chest PE protocol Ordering Provider: Oumar Staples D.O. PROCEDURE:? CT ANGIO CHEST PE PROTOCOL ? INDICATIONS:? chest pain, tachycardia, tachypnea, hypoxia, elevated Ddimer ? TECHNIQUE:? After the administration of intravenous contrast, 2 mm thick sections acquired from the pulmonary apices to the posterior costophrenic angles.? 3-dimensional maximum intensity projection (MIP) coronal and sagittal reformats were then acquired through the thorax.? For radiation dose reduction, the following was used:? automated exposure control, adjustment of mA and/or kV according to patient size.? ? COMPARISON:? None. ? FINDINGS:? Image quality:? Excellent.? ? Pulmonary arteries:? Pulmonary arteries are normal in size, and demonstrate no intraluminal filling defects to suggest central pulmonary embolism.? ? Lungs and pleura:? Lungs are clear.? No pleural effusions or pneumothorax.? Central and peripheral airways are patent.? ? Mediastinum:? Heart size is normal, without pericardial effusion.? No mediastinal or hilar adenopathy.? Thoracic aorta is normal in caliber and enhancement.? Esophagus is normal in caliber, without hiatal hernia.? ? Bones and chest wall:? No suspicious bony lesions.? Ribs and thoracic spine appear intact throughout.? Thyroid is unremarkable.? No axillary or supraclavicular adenopathy.? ? Abdomen:? Please see the report from the dedicated CT of the abdomen pelvis performed at the same time for detailed intra-abdominal findings. ? IMPRESSION:? No acute pulmonary embolism.? No acute abnormality is seen in the chest. ? ? Dictated by: Papa Medrano M.D. on 12/23/2020 at 23:21 ? ? Approved by: Papa Medrano M.D. on 12/23/2020 at 23:25 ? CT scan - abdomen/pelvis: Radiologist's Impression: Launch?[place] [address] CT Scan Report Signed Patient: Adrienne Quintero MR#: [id number] : 1990 Acct:[id number] Age/Sex: 30 / F Date of Service: 12/23/20 Loc: ED Accession Number: [id number] ?? Procedure: CT abdomen pelvis w con Ordering Provider: Oumar Staples D.O. PROCEDURE:? CT ABDOMEN PELVIS W CON ? INDICATIONS:? abdomen / kidney pain ? TECHNIQUE:? After the administration of intravenous contrast, axial sections acquired from the lung bases to the pubic symphysis.? Coronal and sagittal reformats were performed.? For radiation dose reduction, the following was used:? automated exposure control, adjustment of mA and/or kV according to patient size.? ? COMPARISON:? [facility], CT, CT ABDOMEN PELVIS W CON, 05/27/2020, 21:04. ? FINDINGS:? Image quality:? Excellent.? ? Lung bases:? Unremarkable. Heart:? No significant findings. ? ABDOMEN: Liver:? Unremarkable.? ? Gallbladder:? Unremarkable. Biliary ducts:? Unremarkable.? ? Pancreas:? Unremarkable.? ? Spleen:? Unremarkable.? ? Adrenal Glands:? Unremarkable.? ? Kidneys and Ureters:? A subcentimeter hypodensity is seen in the interpolar delilah on of the left kidney that is too small to characterize and does not appear significantly changed in size when compared to the prior CT from 05/27/2020.? No renal calculus or hydronephrosis. ? Stomach and Bowel:? Stomach, small bowel loops, and colon are unremarkable.? Normal appendix. Peritoneum:? No abnormal intraperitoneal fluid.? No free air.? ? Ventral Wall: ? No hernias.? Abdominal Nodes:? No retroperitoneal or mesenteric adenopathy by size criteria.? Vessels:? Aorta and inferior vena cava are normal in size.? ? PELVIS: Pelvic Organs:? Unremarkable.? ? Bladder:? Unremarkable.? ? Pelvic Nodes: No enlarged lymph nodes.? Miscellaneous: No hernias are seen. ? ? ? Bones:? Unremarkable.? IMPRESSION:? No acute abnormality is seen in the abdomen or pelvis.? Normal appendix.? No renal or ureteral calculus or hydronephrosis. ? ? Dictated by: Papa Medrano M.D. on 12/23/2020 at 23:25 ? ? Approved by: Papa Medrano M.D. on 12/23/2020 at 23:31? MDM Narrative Medical decision making narrative: Patient is been having multiple, widespread symptoms for quite some time. She has undergone variety of significant evaluations and has pending consultations for various specialists. Today's history and physical are reassuring, labs were unremarkable and imaging showed no obvious source of her symptoms or need for a specific treatment or therapy. Extensive return precautions discussed and questions answered to her apparent satisfaction Discharge Plan Departure Patient Disposition: Home Clinical Impression: Atypical chest pain, Fatigue, Kidney pain Instructions: DI for Atypical Chest Pain Activity Restrictions/Additional Instructions: *You have been diagnosed with [atypical chest pain, kidney pain and fatigue. As we discussed at length, thankfully your labs and imaging are very reassuring and there is no evidence of a diagnosis which would require a specific or immediate intervention. *What to do: *Please continue to take your regular medications as directed. [ ] New medication prescriptions sent to your pharmacy: [ ] [ ] New medication written as a paper prescription [x ] No new medications given *Please follow up with your primary care provider in 2-3 days, call for an appointment. Let them know you were seen in the Emergency Department and that we ask that you be seen in follow up. We will electronically transmit a record of today's note if your PCP is in our system *If you do not have a primary care provider please contact the [facility] [place] line at [phone]. They will ask some questions about your medical history and help get you set up with a doctor in the community. *Return to Emergency Department if you should have any new, worsening or concerning symptoms, such as [fever greater than 101 F, shaking chills, worsening pain, persistent vomiting or other bothersome symptoms] Prescriptions: No Action levetiracetam 500 mg tablet 500 mg PO BID Qty: 120 0RF levothyroxine [Synthroid] 200 mcg tablet 200 mcg PO DAILY 0RF (DME) Disabled Parking Permit See Rx Instructions .Route .MEDSUPPLY Qty: 1 0RF Rx Instructions: As directed Referrals: Todd Coronado DO [Primary Care Provider] -
--- NOTE | 2020-12-23 22:05 | DI.RAD.S_ITS ---
PROCEDURE: XR CHEST 1V INDICATIONS: chest pain TECHNIQUE: One view of the chest was acquired. COMPARISON: None. FINDINGS: Surgical changes and devices: None. Lungs and pleura: Lungs are clear. No pleural effusions or pneumothorax. Mediastinum: Mediastinal contours appear normal. Heart size is normal. Bones and chest wall: No suspicious bony lesions. Overlying soft tissues appear unremarkable. IMPRESSION: No acute cardiopulmonary abnormality. Dictated by: Papa Medrano M.D. on 12/23/2020 at 22:21 Approved by: Papa Medrano M.D. on 12/23/2020 at 22:21
[2020-12-23] MEDS: SODIUM CHLORIDE 0.9% 1,000 ML 150 ML IV (22:19)
[2020-12-23 22:40] LABS: Add Manual Diff / Slide Review NO; Basophils Absolute Auto 100 /uL (0-100); Basophils Percent Auto 0.8 % (0-2); Eosinophils Absolute Auto 200 /uL (0-450); Eosinophils Percent Auto 2.6 % (2-4); Hematocrit 36.5 % (36-46); Lymphocytes Absolute Auto 2100 /uL (1100-4500); Lymphocytes Percent Auto 27.7 % (25-40); Mean Corpuscular HGB Conc 32.9 % (30-36); Mean Corpuscular Hemoglobin 27.1 PG (26-34); Mean Corpuscular Volume 82.4 fL (80-100); Monocytes Absolute Auto 600 /uL (0-900); Monocytes Percent Auto 7.7 % (3-14); Neutrophils Absolute Auto 4600 /uL (1500-7000); Neutrophils Percent Auto 61.2 % (50-75); Platelet Count 325 X10^3/uL (150-400); Red Blood Cell Count 4.43 X10^6/uL (4.0-5.2); White Blood Cell Count 7.6 X10^3/uL (4.5-11.0)
[2020-12-23 22:43] LABS: D Dimer 259 ng/mL (<230)
[2020-12-23 22:45] LABS: Alanine Aminotransferase 26 IU/L (<35); Albumin 4.3 g/dL (3.5-5.0); Albumin Globulin Ratio 1.3 (1.0-2.8); Alkaline Phosphatase 90 U/L (38-126); Aspartate Aminotransferase 26 IU/L (14-36); BUN Creatinine Ratio 13.4 (6-22); Bilirubin Total 0.5 mg/dL (0.2-1.3); Blood Urea Nitrogen 11 mg/dL (7-17); Calcium 9.4 mg/dL (8.4-10.2); Carbon Dioxide 28 mmol/L (22-32); Chloride 103 mmol/L (98-107); Creatine Kinase 53 U/L (30-135); Estimated Glomerular Filt Rate > 60.0 mL/min (>60); Globulin 3.3 g/dL (1.7-4.1); Glucose 101 mg/dL (70-100); HEMOLYSIS < 15 (0-50); Lipase 101 U/L (23-300); Potassium 3.4 mmol/L (3.4-5.1); Sodium 138 mmol/L (137-145); Total Protein 7.6 g/dL (6.3-8.2)
--- NOTE | 2020-12-23 22:50 | DI.CT.S_ITS ---
PROCEDURE: CT ABDOMEN PELVIS W CON INDICATIONS: abdomen / kidney pain TECHNIQUE: After the administration of intravenous contrast, axial sections acquired from the lung bases to the pubic symphysis. Coronal and sagittal reformats were performed. For radiation dose reduction, the following was used: automated exposure control, adjustment of mA and/or kV according to patient size. COMPARISON: [facility], CT, CT ABDOMEN PELVIS W CON, 05/27/2020, 21:04. FINDINGS: Image quality: Excellent. Lung bases: Unremarkable. Heart: No significant findings. ABDOMEN: Liver: Unremarkable. Gallbladder: Unremarkable. Biliary ducts: Unremarkable. Pancreas: Unremarkable. Spleen: Unremarkable. Adrenal Glands: Unremarkable. Kidneys and Ureters: A subcentimeter hypodensity is seen in the interpolar region of the left kidney that is too small to characterize and does not appear significantly changed in size when compared to the prior CT from 05/27/2020. No renal calculus or hydronephrosis. Stomach and Bowel: Stomach, small bowel loops, and colon are unremarkable. Normal appendix. Peritoneum: No abnormal intraperitoneal fluid. No free air. Ventral Wall: No hernias. Abdominal Nodes: No retroperitoneal or mesenteric adenopathy by size criteria. Vessels: Aorta and inferior vena cava are normal in size. PELVIS: Pelvic Organs: Unremarkable. Bladder: Unremarkable. Pelvic Nodes: No enlarged lymph nodes. Miscellaneous: No hernias are seen. Bones: Unremarkable. IMPRESSION: No acute abnormality is seen in the abdomen or pelvis. Normal appendix. No renal or ureteral calculus or hydronephrosis. Dictated by: Papa Medrano M.D. on 12/23/2020 at 23:25 Approved by: Papa Medrano M.D. on 12/23/2020 at 23:31
--- NOTE | 2020-12-23 22:50 | DI.CT.S_ITS ---
PROCEDURE: CT ANGIO CHEST PE PROTOCOL INDICATIONS: chest pain, tachycardia, tachypnea, hypoxia, elevated Ddimer TECHNIQUE: After the administration of intravenous contrast, 2 mm thick sections acquired from the pulmonary apices to the posterior costophrenic angles. 3-dimensional maximum intensity projection (MIP) coronal and sagittal reformats were then acquired through the thorax. For radiation dose reduction, the following was used: automated exposure control, adjustment of mA and/or kV according to patient size. COMPARISON: None. FINDINGS: Image quality: Excellent. Pulmonary arteries: Pulmonary arteries are normal in size, and demonstrate no intraluminal filling defects to suggest central pulmonary embolism. Lungs and pleura: Lungs are clear. No pleural effusions or pneumothorax. Central and peripheral airways are patent. Mediastinum: Heart size is normal, without pericardial effusion. No mediastinal or hilar adenopathy. Thoracic aorta is normal in caliber and enhancement. Esophagus is normal in caliber, without hiatal hernia. Bones and chest wall: No suspicious bony lesions. Ribs and thoracic spine appear intact throughout. Thyroid is unremarkable. No axillary or supraclavicular adenopathy. Abdomen: Please see the report from the dedicated CT of the abdomen pelvis performed at the same time for detailed intra-abdominal findings. IMPRESSION: No acute pulmonary embolism. No acute abnormality is seen in the chest. Dictated by: Papa Medrano M.D. on 12/23/2020 at 23:21 Approved by: Ppaa Medrano M.D. on 12/23/2020 at 23:25
[2020-12-23 22:57] LABS: NT-proBNP (BNP-Adult 18+) 49 pg/mL (<125); Troponin I < 0.012 ng/mL (0.01-0.034)
[2020-12-23 23:23] LABS: TSH w/ Reflex to FT4 0.98 uIU/mL (0.47-4.68)
[2020-12-24] VITALS: BP 119/71; PULSE 95; RESP 22; O2SAT 99
[2020-12-24 00:30] VITALS: BP 119/64; PULSE 90; RESP 22; O2SAT 98
== END 2020-12-24 00:35 | disposition home or self-care (01) ==
PROVIDERS: Emergency Provider Emergency Medicine; PCP Family Medicine
DX: R07.89 Other chest pain (principal); R53.83 Other fatigue; N23 Unspecified renal colic
CPT/HCPCS: 36415; 71045; 71275; 74177; 80053; 82550; 83690; 83880; 84443; 84484; 85025; 85379; 93005; 96360; 96361; 99284; Q9967

== ENCOUNTER → 2021-03-04 10:32 | Outpatient (CLI) | payer OTHER, SELFPAY ==
[2021-03-04 12:59] LABS: Add Manual Diff / Slide Review NO; Basophils Absolute Auto 0 /uL (0-100); Basophils Percent Auto 0.9 % (0-2); Eosinophils Absolute Auto 100 /uL (0-450); Eosinophils Percent Auto 3.2 % (2-4); Hematocrit 38.8 % (36-46); Hemoglobin 12.7 g/dL (12.0-16.0); Lymphocytes Absolute Auto 1400 /uL (1100-4500); Lymphocytes Percent Auto 33.9 % (25-40); Mean Corpuscular HGB Conc 32.6 % (30-36); Mean Corpuscular Hemoglobin 26.6 PG (26-34); Mean Corpuscular Volume 81.6 fL (80-100); Monocytes Absolute Auto 300 /uL (0-900); Monocytes Percent Auto 7.8 % (3-14); Neutrophils Absolute Auto 2300 /uL (1500-7000); Neutrophils Percent Auto 54.2 % (50-75); Platelet Count 294 X10^3/uL (150-400); Red Blood Cell Count 4.75 X10^6/uL (4.0-5.2); Red Cell Distribution Width 14.5 % (11.6-14.8); White Blood Cell Count 4.3 X10^3/uL (4.5-11.0)
[2021-03-04 13:47] LABS: Alanine Aminotransferase 19 IU/L (<35); Albumin 4.4 g/dL (3.5-5.0); Albumin Globulin Ratio 1.3 (1.0-2.8); Alkaline Phosphatase 85 U/L (38-126); Aspartate Aminotransferase 27 IU/L (14-36); BUN Creatinine Ratio 18.3 (6-22); Bilirubin Total 0.5 mg/dL (0.2-1.3); Blood Urea Nitrogen 15 mg/dL (7-17); Calcium 9.4 mg/dL (8.4-10.2); Carbon Dioxide 25 mmol/L (22-32); Chloride 107 mmol/L (98-107); Estimated Glomerular Filt Rate > 60.0 mL/min (>60); Globulin 3.3 g/dL (1.7-4.1); Glucose 86 mg/dL (70-100); HEMOLYSIS < 15 (0-50); Potassium 3.9 mmol/L (3.4-5.1); Sodium 139 mmol/L (137-145); Total Protein 7.7 g/dL (6.3-8.2)
[2021-03-04 13:56] LABS: Free T3, Triiodothyronine Free 3.46 pg/mL (2.77-5.27); Free T4, Direct Thyroxine 2.22 ng/dL (0.78-2.19)
[2021-03-04 14:32] LABS: Vitamin B12 317 pg/mL (239-931)
== END ==
PROVIDERS: PCP Family Medicine; Referring Provider Family Medicine; Visit Provider Family Medicine
DX: F44.5 Conversion disorder with seizures or convulsions (principal); R27.0 Ataxia, unspecified; R79.89 Other specified abnormal findings of blood chemistry; M62.81 Muscle weakness (generalized); F41.1 Generalized anxiety disorder; E06.3 Autoimmune thyroiditis; L56.8 Other specified acute skin changes due to ultraviolet radiation; G47.00 Insomnia, unspecified; F32.9 Major depressive disorder, single episode, unspecified; E66.01 Morbid (severe) obesity due to excess calories; Z68.41 Body mass index [BMI] 40.0-44.9, adult
CPT/HCPCS: 36415; 80053; 81291; 82607; 84439; 84443; 84481; 85025

== ENCOUNTER 2021-04-27 12:46 | Emergency (ER) | payer OTHER, SELFPAY ==
[2021-04-27 12:52] VITALS: BP 182/106; PULSE 99; RESP 16; TEMP 36.8; O2SAT 100; BMI 38.2
--- NOTE | 2021-04-27 12:56 | DI.RAD.S_ITS ---
PROCEDURE: XR CHEST 1V INDICATIONS: chest pain TECHNIQUE: One view of the chest was acquired. COMPARISON: [facility], CR, XR CHEST 1V, 12/23/2020, 22:11. FINDINGS: Surgical changes and devices: None. Lungs and pleura: Lungs are clear. No pleural effusions or pneumothorax. Mediastinum: Mediastinal contours appear normal. Heart size is normal. Bones and chest wall: No suspicious bony lesions. Overlying soft tissues appear unremarkable. IMPRESSION: No acute cardiopulmonary pathology. Dictated by: Jose Alfred M.D. on 04/27/2021 at 14:54 Approved by: Jose Alfred M.D. on 04/27/2021 at 14:55
[2021-04-27 13:39] LABS: Add Manual Diff / Slide Review NO; Basophils Absolute Auto 0 /uL (0-100); Basophils Percent Auto 0.9 % (0-2); Eosinophils Absolute Auto 100 /uL (0-450); Hematocrit 38.5 % (36-46); Hemoglobin 12.5 g/dL (12.0-16.0); Lymphocytes Absolute Auto 1700 /uL (1100-4500); Mean Corpuscular HGB Conc 32.6 % (30-36); Mean Corpuscular Hemoglobin 27.1 PG (26-34); Mean Corpuscular Volume 83.1 fL (80-100); Monocytes Absolute Auto 300 /uL (0-900); Monocytes Percent Auto 5.7 % (3-14); Neutrophils Absolute Auto 2700 /uL (1500-7000); Neutrophils Percent Auto 55.4 % (50-75); Platelet Count 292 X10^3/uL (150-400); Red Blood Cell Count 4.63 X10^6/uL (4.0-5.2); Red Cell Distribution Width 14.6 % (11.6-14.8); White Blood Cell Count 4.9 X10^3/uL (4.5-11.0)
[2021-04-27 13:58] LABS: Alanine Aminotransferase 23 IU/L (<35); Albumin 4.3 g/dL (3.5-5.0); Albumin Globulin Ratio 1.3 (1.0-2.8); Alkaline Phosphatase 95 U/L (38-126); Aspartate Aminotransferase 26 IU/L (14-36); BUN Creatinine Ratio 14.5 (6-22); Bilirubin Total 0.7 mg/dL (0.2-1.3); Blood Urea Nitrogen 10 mg/dL (7-17); Calcium 9.3 mg/dL (8.4-10.2); Carbon Dioxide 24 mmol/L (22-32); Chloride 108 mmol/L (98-107); Creatine Kinase 45 U/L (30-135); Estimated Glomerular Filt Rate > 60.0 mL/min (>60); Globulin 3.2 g/dL (1.7-4.1); Glucose 83 mg/dL (70-100); HEMOLYSIS 16 (0-50); Lipase 72 U/L (23-300); Magnesium 1.9 mg/dL (1.6-2.3); Potassium 4.1 mmol/L (3.4-5.1); Sodium 138 mmol/L (137-145); Total Protein 7.5 g/dL (6.3-8.2)
[2021-04-27 14:08] LABS: Troponin I < 0.012 ng/mL (0.01-0.034)
--- NOTE | 2021-04-27 15:53 | ED_ITS ---
HPI - Chest Pain General Chief Complaint: Chest Pain Stated Complaint: Chest pain, SOB, hands & legs numb Time Seen by Provider: 04/27/21 15:38 Source: patient Mode of arrival: Ambulatory Limitations: no limitations History of Present Illness HPI narrative: Patient is a 30-year-old female who is here for evaluation of left-sided chest discomfort. States that it started last evening. Has been consistent since en. It is worse with palpation and moving of her arm. Not changed with eating. She is also complaining of tingling in both of her upper extremities and also her lower extremities. No trauma. No problems breathing. Related Data Previous Rx's Medication Instructions Recorded Disabled Parking Permit #1 ea 12/08/20 montelukast 10 mg tablet 10 mg PO DAILY #90 tab 02/25/21 thyroid (pork) 90 mg tablet 90 mg PO DAILY #90 tab 03/29/21 ([place] Thyroid) levetiracetam 500 mg tablet 500 mg PO BID #120 tab 04/13/21 Allergies Allergy/AdvReac Type Severity Reaction Status Date / Time tramadol [TRAMADOL] Allergy Severe anaphylaxis Verified 04/27/21 12:52 amoxicillin [From [facility]] Allergy Mild itching Verified 04/27/21 12:52 clavulanic acid Allergy Mild itching Verified 04/27/21 12:52 [From AUGMENT[facility]] Sulfa (Sulfonamide Allergy Mild itching Verified 04/27/21 12:52 Antibiotics) [SULFA (SULFONAMIDE ANTIBIOTICS)] hydrocodone [HYDROCODONE] AdvReac Mild nausea Verified 04/27/21 12:52 oxycodone [OXYCODONE] AdvReac Mild nausea Verified 04/27/21 12:52 Review of Systems Constitutional Constitutional: Reports system reviewed and no additional complaints, except as documented Cardiovascular Cardiovascular: Reports system reviewed and no additional complaints, except as documented Respiratory Respiratory: Reports system reviewed and no additional complaints, except as documented Gastrointestinal Gastrointestinal: Reports system reviewed and no additional complaints, except as documented Musculoskeletal Musculoskeletal: Reports system reviewed and no additional complaints, except as documented and Reports as per HPI Integumentary/Breasts Skin/Breast: Reports system reviewed and no additional complaints, except as documented Neurologic Neurologic: Reports system reviewed and no additional complaints, except as documented Hematologic/Lymphatic On Anticoagulants: No Patient History Medical History Ataxia Balance problem Celiac disease/sprue (2011) Edema Elevated prolactin level Elevated TSH Functional neurological symptom disorder with attacks or seizures Hypermobility syndrome Hypothyroidism (2005) Insomnia Morbid obesity with BMI of 40.0-44.9, adult Muscle weakness (generalized) Observed seizure-like activity Photosensitivity Pseudoseizure Recurrent apnea Surgical History Anesthesia complication History of bilateral tubal ligation Status post delivery (08/07/11) Family History Father Age: 54 Hypertension High cholesterol Mother Age: 59 Skin cancer Grandmother Age: 75 Diabetes mellitus Social History marital status: household members: spouse and children (daughter) housing: house pets and animals: Yes (2 dogs 1 cat) jonna/spiritism: Pentecostalism seatbelt use: always helmet use: Yes water heater temp set < 120 deg: Yes Smoking Status: Never smoker alcohol intake: never substance use type: does not use Smoking Status: Never smoker alcohol intake frequency: holidays/special occasions only Substance Use Type: does not use Exam Initial Vital Signs Initial Vital Signs: Vital Signs Temperature 98.2 F 04/27/21 12:52 Pulse Rate 99 H 04/27/21 12:52 Respiratory Rate 16 04/27/21 12:52 Blood Pressure 182/106 H 04/27/21 12:52 Pulse Oximetry 100 04/27/21 12:52 Const General: cooperative, healthy appearing, comfortable and well developed HENNM Head: normal to inspection and normocephalic Eyes General: appearance normal, both eyes and all related structures Chest Other: Tenderness to palpation left-sided chest wall Resp Effort & Inspection: normal respiratory effort Auscultation: clear to auscultation bilaterally Cardio Rate: regular rate Rhythm: regular rhythm GI Inspection: normal to inspection Skin General: no rashes or lesions noted Neuro General: patient alert, patient awake and moves all extremities Extrem General: normal to inspection and capillary refill normal Psych Appearance: grossly normal and well kempt Course Orders Ordered: ED Orders 04/27/21 12:56 XR chest 1V Stat 04/27/21 12:59 EKG-12 Lead Stat 04/27/21 13:10 Complete Blood Count AUTO DIFF Stat Comprehensive Metabolic Panel Stat Lipase Stat Magnesium Stat Troponin & CK Cardiac Panel Stat 04/27/21 15:30 Partial Thromboplastin Time Stat Prothrombin Time INR Stat Discontinued Medications Ketorolac Tromethamine (Ketorolac 30 Mg/Ml Vial) 30 mg IV NOW ONE Stop: 04/27/21 15:55 Last Admin: 04/27/21 16:05 Dose: 30 mg Documented by: JENARO Vital Signs Vital signs: Vital Signs - 8 hr 04/27/21 12:52 04/27/21 16:20 Temperature 98.2 F Pulse Rate 99 H 69 Respiratory Rate 16 18 Blood Pressure 182/106 H 130/70 Pulse Oximetry 100 100 MDM - Chest Pain Lab Data Attestation: I reviewed the patient's lab results. Result diagrams: 04/27/21 13:10 04/27/21 13:10 Labs: Lab Results 04/27/21 04/27/21 04/27/21 Range/Units 13:10 13:10 15:30 WBC 4.9 (4.5-11.0) X10^3/uL RBC 4.63 (4.0-5.2) X10^6/uL Hgb 12.5 (12.0-16.0) g/dL Hct 38.5 (36-46) % MCV 83.1 (80-100) fL MCH 27.1 (26-34) PG MCHC 32.6 (30-36) % RDW 14.6 (11.6-14.8) % Plt Count 292 (150-400) X10^3/uL Neut % (Auto) 55.4 (50-75) % Lymph % (Auto) 35.0 (25-40) % Jess[place] % (Auto) 5.7 (3-14) % Eos % (Auto) 3.0 (2-4) % Baso % (Auto) 0.9 (0-2) % Neut # (Auto) 2700 (4255-0176) /uL Lymph # (Auto) 1700 (9590-3591) /uL Jessamine # (Auto) 300 (0-900) /uL Eos # (Auto) 100 (0-450) /uL Baso # (Auto) 0 (0-100) /uL PT 12.1 (10.1-12.7) SECONDS INR 1.1 (0.9-1.3) APTT 33 (26.4-36.2) SECONDS Sodium 138 (137-145) mmol/L Potassium 4.1 (3.4-5.1) mmol/L Chloride 108 H (98-107) mmol/L Carbon Dioxide 24 (22-32) mmol/L BUN 10 (7-17) mg/dL Creatinine 0.69 (0.52-1.04) mg/dL Estimated GFR > 60.0 (>60) mL/min BUN/Creatinine Ratio 14.5 (6-22) Glucose 83 (70-100) mg/dL Calcium 9.3 (8.4-10.2) mg/dL Magnesium 1.9 (1.6-2.3) mg/dL Total Bilirubin 0.7 (0.2-1.3) mg/dL AST 26 (14-36) IU/L ALT 23 (<35) IU/L Alkaline Phosphatase 95 (38-126) U/L Total Creatine Kinase 45 (30-135) U/L CK-MB (CK-2) TNP CK-MB (CK-2) Rel Index TNP Troponin I < 0.012 (0.01-0.034) ng/mL Total Protein 7.5 (6.3-8.2) g/dL Albumin 4.3 (3.5-5.0) g/dL Globulin 3.2 (1.7-4.1) g/dL Albumin/Globulin Ratio 1.3 (1.0-2.8) Lipase 72 (23-300) U/L Imaging Data Chest x-ray: Radiologist's Impression: [address] [id number] XRay Report Signed Patient: Adrienne Quintero MR#: [id number] : 1990 Acct:[id number] Age/Sex: 30 / F Date of Service: 04/27/21 Loc: ED Accession Number: [id number] ?? Procedure: XR chest 1V Ordering Provider: Myles Agee D.O. PROCEDURE:? XR CHEST 1V ? INDICATIONS:? chest pain ? TECHNIQUE:? One view of the chest was acquired.? ? COMPARISON:? [facility], [place], XR CHEST 1V, 12/23/2020, 22:11. ? FINDINGS:? ? Surgical changes and devices:? None.? ? Lungs and pleura:? Lungs are clear.? No pleural effusions or pneumothorax.? ? Mediastinum:? Mediastinal contours appear normal.? Heart size is normal.? ? Bones and chest wall:? No suspicious bony lesions.? Overlying soft tissues appear unremarkable.? ? IMPRESSION:? No acute cardiopulmonary pathology. ? ? Dictated by: Jose Alfred M.D. on 04/27/2021 at 14:54 ? ? Approved by: Jsoe Alfred M.D. on 04/27/2021 at 14:55? ECG Data Attestation: I personally reviewed and interpreted this ECG as follows: Interpretation: Sinus rhythm Ventricular rate 81 Normal axis Normal QRS Normal QTC No ST T wave changes MDM Narrative Medical decision making narrative: Patient has had constant symptoms since last evening. Her chest x-ray an EKG and troponin are negative. Low suspicion for ACS. Her chest discomfort is reproducible. She has no breast changes. Low suspicion for pericarditis. I do suspect musculoskeletal in origin. Did discuss use of anti-inflammatories. She was given a dose of Toradol here in the emergency department. She was given return precautions. She expressed understanding and agreement. Discharge Plan Departure Patient Disposition: Home Clinical Impression: Acute chest wall pain Activity Restrictions/Additional Instructions: I recommend that you continue to take all of your medications as directed. You do need to contact your primary doctor for a follow-up. Return to the emergency department for any new symptoms. Prescriptions: No Action thyroid (pork) [[place] Thyroid] 90 mg tablet 90 mg PO DAILY Qty: 90 5RF levetiracetam 500 mg tablet 500 mg PO BID Qty: 120 0RF montelukast 10 mg tablet 10 mg PO DAILY Qty: 90 1RF (DME) Disabled Parking Permit See Rx Instructions .Route .MEDSUPPLY Qty: 1 0RF Rx Instructions: As directed Referrals: Todd Coronado DO [Primary Care Provider] -
[2021-04-27 15:56] LABS: INR 1.1 (0.9-1.3); Prothrombin Time 12.1 SECONDS (10.1-12.7)
[2021-04-27 15:58] LABS: PTT Partial Thromboplastin Tim 33 SECONDS (26.4-36.2)
[2021-04-27] MEDS: KETOROLAC 30 MG/ML VIAL IV (16:05)
[2021-04-27 16:20] VITALS: BP 130/70; PULSE 69; RESP 18; O2SAT 100
== END 2021-04-27 16:21 | disposition home or self-care (01) ==
PROVIDERS: Emergency Provider Emergency Medicine; PCP Family Medicine
DX: R07.89 Other chest pain (principal)
CPT/HCPCS: 36415; 71045; 80053; 82550; 83690; 83735; 84484; 85025; 85610; 85730; 93005; 96374; 99284; J1885

== ENCOUNTER → 2021-05-18 15:15 | Outpatient (CLI) | payer OTHER, SELFPAY ==
[2021-05-18 16:42] LABS: Free T3, Triiodothyronine Free 2.67 pg/mL (2.77-5.27); Free T4, Direct Thyroxine 0.79 ng/dL (0.78-2.19)
[2021-05-18 16:44] LABS: Thyroid Stimulating Hormone 17.8 uIU/mL (0.47-4.68)
== END ==
PROVIDERS: PCP Family Medicine; Referring Provider Family Medicine; Visit Provider Family Medicine
DX: E06.3 Autoimmune thyroiditis (principal); R79.89 Other specified abnormal findings of blood chemistry; G47.00 Insomnia, unspecified; G47.30 Sleep apnea, unspecified; G47.19 Other hypersomnia
CPT/HCPCS: 36415; 84439; 84443; 84481; 99213

== ENCOUNTER 2022-01-06 14:50 | Emergency (ER) | payer OTHER, SELFPAY ==
[2022-01-06] VITALS (9 sets, daily range): BP systolic 130–175; BP diastolic 82–97; PULSE 68–85; RESP 15–18; TEMP 37.1; O2SAT 97–100; BMI 38.6
--- NOTE | 2022-01-06 15:02 | DI.RAD.S_ITS ---
PROCEDURE: XR CHEST 1V INDICATIONS: chest pain TECHNIQUE: One view of the chest was acquired. COMPARISON: [facility], [place], XR CHEST 1V, 04/27/2021, 14:18. FINDINGS: Surgical changes and devices: None. Lungs and pleura: Lungs are clear. No pleural effusions or pneumothorax. Mediastinum: Mediastinal contours appear normal. Heart size is normal. Bones and chest wall: No suspicious bony lesions. Overlying soft tissues appear unremarkable. IMPRESSION: No acute cardiopulmonary process demonstrated radiographically. Dictated by: Silas Damon M.D. on 01/06/2022 at 15:48 Approved by: Silas Damon M.D. on 01/06/2022 at 15:48
--- NOTE | 2022-01-06 15:57 | ED.CHESTPAIN ---
HPI - Chest Pain <Casie Bhatt PHOTOVOLTAIC FABRICATION TECHNICIAN - Last Filed: 01/06/22 17:32> General Chief Complaint: Chest Pain Stated Complaint: Arm pain, Swelling Time Seen by Provider: 01/06/22 15:14 Source: patient Mode of arrival: Ambulatory Limitations: no limitations History of Present Illness HPI narrative: This is a 31-year-old female with history of chronic pain, Karen's thyroiditis, somatic dysfunction, chronic neck pain, obesity, and generalized anxiety disorder who presents to the emergency department today for left arm pain, tenderness to palpation and states it feels swollen and is worse with flexion of her left wrist, and movement of her arm. She denies any rash, any open wound, increased activity. She is right-hand dominant, her programs manager is Dr. Dorantes in [place]. States that her 2 children and has been sick at home but she has not had any symptoms of this. She denies any increased activity or other symptoms over the last 2 days. Denies any numbness or tingling to her fingers but if she squeezes her forearm it is tender to palpation. She takes meloxicam 15 mg daily for pain. Has multiple allergies to opiates. Patient is on naltrexone for pain through the [facility], states she takes 4.5 mg each night and states that she is out of her medication currently. This hospital does not carry is medication, she states that she was on her way to [facility] to go pick this up but came here since she was not feeling well. Related Data Home Medications Medication Instructions Recorded Confirmed fexofenadine 180 mg tablet 180 mg PO DAILY 05/18/21 07/19/21 meloxicam 15 mg tablet 15 mg PO DAILY 05/18/21 07/19/21 Low dose naltrexone 4.5mg 4.5 mg PO DAILY 07/09/21 07/19/21 Previous Rx's Medication Instructions Recorded Disabled Parking Permit #1 ea 12/08/20 montelukast 10 mg tablet 10 mg PO DAILY #90 tabs 02/25/21 thyroid (pork) 90 mg tablet 90 mg PO DAILY #90 tabs 03/29/21 ([place] Thyroid) levetiracetam 500 mg tablet 500 mg PO BID #120 tabs 04/13/21 diclofenac sodium 1 % topical gel 4 g topical QID PRN pain #100 grams 01/06/22 ketorolac 10 mg tablet 10 mg PO TID PRN pain 5 days #14 01/06/22 tabs morphine 10 mg capsule,extended 10 mg PO Q12H PRN pain #10 caps 01/06/22 release pellets Allergies Allergy/AdvReac Type Severity Reaction Status Date / Time tramadol [TRAMADOL] Allergy Severe anaphylaxis Verified 01/06/22 14:24 amoxicillin [From AUGMENTIN] Allergy Mild itching Verified 01/06/22 14:24 clavulanic acid Allergy Mild itching Verified 01/06/22 14:24 [From AUGMENTIN] Sulfa (Sulfonamide Allergy Mild itching Verified 01/06/22 14:24 Antibiotics) [SULFA (SULFONAMIDE ANTIBIOTICS)] hydrocodone [HYDROCODONE] AdvReac Mild nausea Verified 01/06/22 14:24 oxycodone [OXYCODONE] AdvReac Mild nausea Verified 01/06/22 14:24 Review of Systems <JAMES Winslow - Last Filed: 01/06/22 17:32> Review of Systems Narrative: Review of systems is negative for acute abnormalities unless otherwise noted in HPI Patient History <JAMES Winslow - Last Filed: 01/06/22 17:32> Medical History Arthralgia Ataxia Balance problem Bilateral chronic knee pain Celiac disease/sprue (2011) Cervical somatic dysfunction Chronic neck pain Chronic pain disorder Cranial somatic dysfunction Edema Elevated prolactin level Elevated TSH Family history of malignant neoplasm of uterus FH: BRCA1 gene positive FHx: BRCA1 gene positive Functional neurological symptom disorder with attacks or seizures Hypermobility syndrome Hypothyroidism (2005) Insomnia Morbid obesity with BMI of 40.0-44.9, adult Muscle weakness (generalized) Myalgia Observed seizure-like activity Pelvic somatic dysfunction Photosensitivity Pseudoseizure Recurrent apnea Segmental and somatic dysfunction of abdomen and other regions Segmental and somatic dysfunction of rib cage Somatic dysfunction of lower extremity Surgical History Anesthesia complication History of bilateral tubal ligation Status post delivery (08/07/11) Family History Father Age: 55 Hypertension High cholesterol Mother Age: 60 Skin cancer Cancer BRCA1 gene mutation positive Grandmother Age: 76 Diabetes mellitus Sister BRCA1 gene mutation positive Social History marital status: household members: spouse and children (daughter) housing: house pets and animals: Yes (2 dogs 1 cat) jonna/catholic: Voodoo seatbelt use: always helmet use: Yes water heater temp set < 120 deg: Yes Smoking Status: Never smoker alcohol intake: never substance use type: does not use Smoking Status: Never smoker alcohol intake frequency: holidays/special occasions only Substance Use Type: does not use Exam <JAMES Winslow - Last Filed: 01/06/22 17:32> Narrative Exam Narrative: Reviewed vitals signs and nursing notes. General: cooperative, comfortable, in no acute distress, well groomed, patient is moving her arms about without weakness, talkative and interactive HEENT: symmetrical facial expressions, moist mucous membranes without congestion, fever, cough Cardiovascular: regular rate and rhythm, without murmur, S1-S2, no peripheral edema, warm extremities Respiratory: normal effort, able to speak in complete sentences, without wheezing, stridor, or abnormal breath sounds. No retractions or tachypnea. GI: abdomen soft, nontender to palpation, nondistended, without masses, rebound tenderness or exquisite tenderness with exam. MSK: moves all extremities, neurovascularly intact, no weakness, normal tone, when squeezing left forearm, she complains of pain along the radial aspect, when squeezing her biceps she has tenderness over the biceps tendon, full range of motion of all joints of her left arm without deficit or weakness, without sensation deficit, cap refills brisk with radial pulse 2 +, patient is ambulatory, cervical spine without tenderness to palpation, no rash to her left arm. Skin: brisk capillary refill, without pallor or erythema Neuro: normal speech and cognition, A&O x3, ambulatory, clear speech Psych: mental status is grossly normal, congruent mood, normal affect, pleasant and cooperative Initial Vital Signs Initial Vital Signs: Vital Signs Temperature 98.8 F 01/06/22 14:51 Pulse Rate 85 01/06/22 14:51 Respiratory Rate 18 01/06/22 14:51 Blood Pressure 175/97 H 01/06/22 14:51 Pulse Oximetry 97 01/06/22 14:51 Oxygen Delivery Method 01/06/22 14:51 <Radha Chin DO - Last Filed: 01/07/22 11:59> Initial Vital Signs Initial Vital Signs: Vital Signs Temperature 98.8 F 01/06/22 14:51 Pulse Rate 85 01/06/22 14:51 Respiratory Rate 18 01/06/22 14:51 Blood Pressure 175/97 H 01/06/22 14:51 Pulse Oximetry 97 01/06/22 14:51 Oxygen Delivery Method 01/06/22 14:51 Course <JAMES Winslow - Last Filed: 01/06/22 17:32> Orders Ordered: Discontinued Medications Acetaminophen (Acetaminophen 325 Mg Tablet) 975 mg PO NOW ONE Stop: 01/06/22 15:39 Last Admin: 01/06/22 16:58 Dose: 975 mg Documented By: MIKAYLA Hydromorphone HCl (Hydromorphone 0.5 Mg Inj) 0.5 mg IV NOW ONE Stop: 01/06/22 15:39 Last Admin: 01/06/22 17:27 Dose: Not Given Documented By: MIKAYLA Ketorolac Tromethamine (Ketorolac 30 Mg/Ml Vial) 15 mg IV NOW ONE Stop: 01/06/22 15:38 Last Admin: 01/06/22 16:58 Dose: 15 mg Documented By: MIKAYLA Morphine Sulfate (Morphine 10 Mg/0.5 Ml Oral Syringe) 10 mg PO Q1HR ONE Stop: 01/06/22 16:43 Last Admin: 01/06/22 16:59 Dose: 10 mg Documented By: MIKAYLA Vital Signs Vital signs: Vital Signs - 8 hr 01/06/22 14:51 01/06/22 15:14 01/06/22 15:15 Temperature 98.8 F Pulse Rate 85 78 Respiratory Rate 18 17 Blood Pressure 175/97 H 138/82 Pulse Oximetry 97 Oxygen Delivery Method Room Air 01/06/22 15:15 01/06/22 15:30 01/06/22 16:00 Temperature Pulse Rate 70 77 72 Respiratory Rate 15 Blood Pressure Pulse Oximetry 100 100 100 Oxygen Delivery Method Room Air 01/06/22 16:30 01/06/22 17:00 Temperature Pulse Rate 68 69 Respiratory Rate Blood Pressure Pulse Oximetry 100 100 Oxygen Delivery Method <Radha Chin DO - Last Filed: 01/07/22 11:59> Orders Ordered: Discontinued Medications Acetaminophen (Acetaminophen 325 Mg Tablet) 975 mg PO NOW ONE Stop: 01/06/22 15:39 Last Admin: 01/06/22 16:58 Dose: 975 mg Documented By: MIKAYLA Hydromorphone HCl (Hydromorphone 0.5 Mg Inj) 0.5 mg IV NOW ONE Stop: 01/06/22 15:39 Last Admin: 01/06/22 17:27 Dose: Not Given Documented By: MIKAYLA Ketorolac Tromethamine (Ketorolac 30 Mg/Ml Vial) 15 mg IV NOW ONE Stop: 01/06/22 15:38 Last Admin: 01/06/22 16:58 Dose: 15 mg Documented By: MIKAYLA Morphine Sulfate (Morphine 10 Mg/0.5 Ml Oral Syringe) 10 mg PO Q1HR ONE Stop: 01/06/22 16:43 Last Admin: 01/06/22 16:59 Dose: 10 mg Documented By: MIKAYLA Vital Signs Vital signs: Vital Signs - 8 hr 01/06/22 14:51 01/06/22 15:14 01/06/22 15:15 Temperature 98.8 F Pulse Rate 85 78 Respiratory Rate 18 17 Blood Pressure 175/97 H 138/82 Pulse Oximetry 97 Oxygen Delivery Method Room Air 01/06/22 15:15 01/06/22 15:30 01/06/22 16:00 Temperature Pulse Rate 70 77 72 Respiratory Rate 15 Blood Pressure Pulse Oximetry 100 100 100 Oxygen Delivery Method Room Air 01/06/22 16:30 01/06/22 17:00 Temperature Pulse Rate 68 69 Respiratory Rate Blood Pressure Pulse Oximetry 100 100 Oxygen Delivery Method MDM - Chest Pain <JAMES Winslow - Last Filed: 01/06/22 17:32> Lab Data Result diagrams: 01/06/22 16:14 01/06/22 16:14 Labs: Lab Results 01/06/22 01/06/22 01/06/22 Range/Units 15:48 16:14 16:14 WBC 5.7 (4.5-11.0) X10^3/uL RBC 4.58 (4.0-5.2) X10^6/uL Hgb 12.8 (12.0-16.0) g/dL Hct 38.7 (36-46) % MCV 84.5 (80-100) fL MCH 28.0 (26-34) PG MCHC 33.1 (30-36) % RDW 13.7 (11.6-14.8) % Plt Count 307 (150-400) X10^3/uL Neut % (Auto) 58.7 (50-75) % Lymph % (Auto) 31.0 (25-40) % Polk % (Auto) 6.3 (3-14) % Eos % (Auto) 2.7 (2-4) % Baso % (Auto) 1.3 (0-2) % Neut # (Auto) 3300 (1471-5178) /uL Lymph # (Auto) 1800 (0030-0822) /uL Polk # (Auto) 400 (0-900) /uL Eos # (Auto) 200 (0-450) /uL Baso # (Auto) 100 (0-100) /uL ESR (0-20) MM/HR PT 12.7 (10.1-12.7) SECONDS INR 1.1 (0.9-1.3) APTT 32 (26-36) SECONDS Sodium (137-145) mmol/L Potassium (3.4-5.1) mmol/L Chloride (98-107) mmol/L Carbon Dioxide (22-32) mmol/L BUN (7-17) mg/dL Creatinine (0.52-1.04) mg/dL Estimated GFR (>60) mL/min BUN/Creatinine Ratio (6-22) Glucose (70-100) mg/dL Calcium (8.4-10.2) mg/dL Magnesium (1.6-2.3) mg/dL Total Bilirubin (0.2-1.3) mg/dL AST (14-36) IU/L ALT (<35) IU/L Alkaline Phosphatase (38-126) U/L Total Creatine Kinase (30-135) U/L CK-MB (CK-2) CK-MB (CK-2) Rel Index Troponin I (0.01-0.034) ng/mL C-Reactive Protein (<1.0) mg/dL Total Protein (6.3-8.2) g/dL Albumin (3.5-5.0) g/dL Globulin (1.7-4.1) g/dL Albumin/Globulin Ratio (1.0-2.8) Lipase (23-300) U/L SARS-CoV-2 (PCR) Negative (Negative) Influenza A (RT-PCR) Flu a negative (NEGATIVE) Influenza B (RT-PCR) Flu b negative (NEGATIVE) RSV (PCR) Negative (Negative) 01/06/22 01/06/22 01/06/22 Range/Units 16:14 16:14 16:14 WBC (4.5-11.0) X10^3/uL RBC (4.0-5.2) X10^6/uL Hgb (12.0-16.0) g/dL Hct (36-46) % MCV (80-100) fL MCH (26-34) PG MCHC (30-36) % RDW (11.6-14.8) % Plt Count (150-400) X10^3/uL Neut % (Auto) (50-75) % Lymph % (Auto) (25-40) % Polk % (Auto) (3-14) % Eos % (Auto) (2-4) % Baso % (Auto) (0-2) % Neut # (Auto) (9076-8740) /uL Lymph # (Auto) (8960-1493) /uL Polk # (Auto) (0-900) /uL Eos # (Auto) (0-450) /uL Baso # (Auto) (0-100) /uL ESR 10 (0-20) MM/HR PT (10.1-12.7) SECONDS INR (0.9-1.3) APTT (26-36) SECONDS Sodium 138 (137-145) mmol/L Potassium 3.6 (3.4-5.1) mmol/L Chloride 103 (98-107) mmol/L Carbon Dioxide 25 (22-32) mmol/L BUN 11 (7-17) mg/dL Creatinine 0.77 (0.52-1.04) mg/dL Estimated GFR > 60 (>60) mL/min BUN/Creatinine Ratio 14.3 (6-22) Glucose 80 (70-100) mg/dL Calcium 9.0 (8.4-10.2) mg/dL Magnesium 2.0 (1.6-2.3) mg/dL Total Bilirubin 0.6 (0.2-1.3) mg/dL AST 23 (14-36) IU/L ALT 21 (<35) IU/L Alkaline Phosphatase 88 (38-126) U/L Total Creatine Kinase 59 (30-135) U/L CK-MB (CK-2) TNP CK-MB (CK-2) Rel Index TNP Troponin I < 0.012 (0.01-0.034) ng/mL C-Reactive Protein 1.5 H (<1.0) mg/dL Total Protein 7.8 (6.3-8.2) g/dL Albumin 4.4 (3.5-5.0) g/dL Globulin 3.4 (1.7-4.1) g/dL Albumin/Globulin Ratio 1.3 (1.0-2.8) Lipase 61 (23-300) U/L SARS-CoV-2 (PCR) (Negative) Influenza A (RT-PCR) (NEGATIVE) Influenza B (RT-PCR) (NEGATIVE) RSV (PCR) (Negative) Imaging Data Chest x-ray: Radiologist's Impression: PROCEDURE:? XR CHEST 1V ? INDICATIONS:? chest pain ? TECHNIQUE:? One view of the chest was acquired.? ? COMPARISON:? [facility], , XR CHEST 1V, 04/27/2021, 14:18. ? FINDINGS:? ? Surgical changes and devices:? None.? ? Lungs and pleura:? Lungs are clear.? No pleural effusions or pneumothorax.? ? Mediastinum:? Mediastinal contours appear normal.? Heart size is normal.? ? Bones and chest wall:? No suspicious bony lesions.? Overlying soft tissues appear unremarkable.? ? IMPRESSION:? No acute cardiopulmonary process demonstrated radiographically. ? ? Dictated by: Silas Damon M.D. on 01/06/2022 at 15:48 ? ? Approved by: Silas Damon M.D. on 01/06/2022 at 15:48 ? ECG Data Interpretation: EKG independently reviewed by myself at 1530 reveals normal sinus rhythm at [70] bpm with regular axis and intervals. No STEMI, ST segment changes, arrhythmia, or acute ischemic changes. MDM Narrative Medical decision making narrative: This is a 31 year old female with significant PMH of chronic pain, somatic dysfunction, Karen's thyroiditis, anxiety and depression who presents via POV w/left arm pain along the radial and biceps tendons, 2 days with a gradual onset. Denies previous episodes. Pt reports pain is 7/10 and denies radiation, denies chest pain, shortness of breath, difficulty breathing, wheezing or palpitations. She has a history of chronic neck pain, she is without new weakness or sensation changes to her bilateral upper extremities My interpretation of the EKG revealed sinus rhythm without T-wave changes or new arrhythmia. Review of medical records from prior visit reveals no recent cardiac-testing, cardiac cath or recent chest imaging. Pt has symmetric UE pulses, reports no radiation, no diaphoresis, no provocation with exertion, and no vomiting. Other diagnoses considered include ACS, PE, cervical spinal for analgesia, exacerbation of chronic pain, viral syndrome, tendinitis, tenosynovitis, costochondritis, viral syndrome, myocarditis/pericarditis and pleurisy. Respiratory panel is negative for influenza, RSV, and COVID-19. EKG, CMP, CBC, and Troponin and without abnormality were ordered to evaluate the patient for ACS since patient was sent over from the walk-in clinic for evaluation. I have independently interpreted his EKG which shows NSR, rate of 70, no ST changes, no STEMI. I have independently reviewed the CXR and there is no mediastinal widening or effusion. ESR is within normal range, CRP is 1.5, this is mildly elevated. Most likely diagnosis is tendinitis secondary to overuse or related to inflammatory flare secondary to illness. Patient was given strict return precautions, she has a programs manager for follow-up and is encouraged to do so. I have discussed recommendation for with the patient and We have discussed benefits of * and the risks of discharge home. Pt agrees with plan of care. <Radha Chin, DO - Last Filed: 01/07/22 11:59> Lab Data Labs: Lab Results 01/06/22 01/06/22 01/06/22 Range/Units 15:48 16:14 16:14 WBC 5.7 (4.5-11.0) X10^3/uL RBC 4.58 (4.0-5.2) X10^6/uL Hgb 12.8 (12.0-16.0) g/dL Hct 38.7 (36-46) % MCV 84.5 (80-100) fL MCH 28.0 (26-34) PG MCHC 33.1 (30-36) % RDW 13.7 (11.6-14.8) % Plt Count 307 (150-400) X10^3/uL Neut % (Auto) 58.7 (50-75) % Lymph % (Auto) 31.0 (25-40) % Polk % (Auto) 6.3 (3-14) % Eos % (Auto) 2.7 (2-4) % Baso % (Auto) 1.3 (0-2) % Neut # (Auto) 3300 (5648-8307) /uL Lymph # (Auto) 1800 (8529-1861) /uL Polk # (Auto) 400 (0-900) /uL Eos # (Auto) 200 (0-450) /uL Baso # (Auto) 100 (0-100) /uL ESR (0-20) MM/HR PT 12.7 (10.1-12.7) SECONDS INR 1.1 (0.9-1.3) APTT 32 (26-36) SECONDS Sodium (137-145) mmol/L Potassium (3.4-5.1) mmol/L Chloride (98-107) mmol/L Carbon Dioxide (22-32) mmol/L BUN (7-17) mg/dL Creatinine (0.52-1.04) mg/dL Estimated GFR (>60) mL/min BUN/Creatinine Ratio (6-22) Glucose (70-100) mg/dL Calcium (8.4-10.2) mg/dL Magnesium (1.6-2.3) mg/dL Total Bilirubin (0.2-1.3) mg/dL AST (14-36) IU/L ALT (<35) IU/L Alkaline Phosphatase (38-126) U/L Total Creatine Kinase (30-135) U/L CK-MB (CK-2) CK-MB (CK-2) Rel Index Troponin I (0.01-0.034) ng/mL C-Reactive Protein (<1.0) mg/dL Total Protein (6.3-8.2) g/dL Albumin (3.5-5.0) g/dL Globulin (1.7-4.1) g/dL Albumin/Globulin Ratio (1.0-2.8) Lipase (23-300) U/L SARS-CoV-2 (PCR) Negative (Negative) Influenza A (RT-PCR) Flu a negative (NEGATIVE) Influenza B (RT-PCR) Flu b negative (NEGATIVE) RSV (PCR) Negative (Negative) 01/06/22 01/06/22 01/06/22 Range/Units 16:14 16:14 16:14 WBC (4.5-11.0) X10^3/uL RBC (4.0-5.2) X10^6/uL Hgb (12.0-16.0) g/dL Hct (36-46) % MCV (80-100) fL MCH (26-34) PG MCHC (30-36) % RDW (11.6-14.8) % Plt Count (150-400) X10^3/uL Neut % (Auto) (50-75) % Lymph % (Auto) (25-40) % Polk % (Auto) (3-14) % Eos % (Auto) (2-4) % Baso % (Auto) (0-2) % Neut # (Auto) (5059-7750) /uL Lymph # (Auto) (3654-0721) /uL Polk # (Auto) (0-900) /uL Eos # (Auto) (0-450) /uL Baso # (Auto) (0-100) /uL ESR 10 (0-20) MM/HR PT (10.1-12.7) SECONDS INR (0.9-1.3) APTT (26-36) SECONDS Sodium 138 (137-145) mmol/L Potassium 3.6 (3.4-5.1) mmol/L Chloride 103 (98-107) mmol/L Carbon Dioxide 25 (22-32) mmol/L BUN 11 (7-17) mg/dL Creatinine 0.77 (0.52-1.04) mg/dL Estimated GFR > 60 (>60) mL/min BUN/Creatinine Ratio 14.3 (6-22) Glucose 80 (70-100) mg/dL Calcium 9.0 (8.4-10.2) mg/dL Magnesium 2.0 (1.6-2.3) mg/dL Total Bilirubin 0.6 (0.2-1.3) mg/dL AST 23 (14-36) IU/L ALT 21 (<35) IU/L Alkaline Phosphatase 88 (38-126) U/L Total Creatine Kinase 59 (30-135) U/L CK-MB (CK-2) TNP CK-MB (CK-2) Rel Index TNP Troponin I < 0.012 (0.01-0.034) ng/mL C-Reactive Protein 1.5 H (<1.0) mg/dL Total Protein 7.8 (6.3-8.2) g/dL Albumin 4.4 (3.5-5.0) g/dL Globulin 3.4 (1.7-4.1) g/dL Albumin/Globulin Ratio 1.3 (1.0-2.8) Lipase 61 (23-300) U/L SARS-CoV-2 (PCR) (Negative) Influenza A (RT-PCR) (NEGATIVE) Influenza B (RT-PCR) (NEGATIVE) RSV (PCR) (Negative) Discharge Plan Departure Patient Disposition: Home Clinical Impression: Tendonitis of wrist, left, History of chronic pain, History of thyroiditis Instructions: Tendinopathy, DI for Tendinitis Activity Restrictions/Additional Instructions: *You have been diagnosed with [tendinitis of your left wrist and bicep tendon] this is likely secondary to an inflammatory flare for some reason, this could be your Karen's or chronic pain. Either way, try to avoid overuse of this arm, a sling will be helpful or by putting your hand in a pocket. This is sometimes caused by overuse, repetitive movements, holding baby's or other household things he would not think of. Please try to avoid overuse, use ice, rest, a sling and elevation. This should start to improve over the next few days, please follow-up with your programs manager if it does not improve, your COVID, influenza and RSV tests were all negative. Your CRP is mildly elevated, this is a marker of inflammation, your ESR which is specific more so is not elevated. All of your other lab work is reassuring that there is not something significant or dangerous going on. Please follow-up with your programs manager and ensure your thyroid is stable and all other things are. *What to do: *Please continue to take your regular medications as directed. [x ] New medication prescriptions sent to your pharmacy: [ [facility] [place]] [ ] New medication written as a paper prescription [ ] No new medications given *Please follow up with your primary care provider in 2-3 days, call for an appointment. Let them know you were seen in the Emergency Department and that we asked that you be seen for follow-up. We will electronically transmit a record of today's note if your PCP is in our system *If you do not have a primary care provider please contact [phone] to establish care with one of the [facility] primary care providers. *Return to Emergency Department if you should have any new, worsening, or concerning symptoms, such as [fever greater than 101F, chills, worsening pain, persistent vomiting or other bothersome symptoms]. Prescriptions: New morphine 10 mg capsule,extend.release pellets 10 mg PO Q12H PRN (Reason: pain) Qty: 10 0RF ketorolac 10 mg tablet 10 mg PO TID PRN (Reason: pain) 5 Days Qty: 14 0RF Rx Instructions: Do not combine with meloxicam, please take with food and water diclofenac sodium 1 % gel 4 g topical QID PRN (Reason: pain) Qty: 100 0RF Rx Instructions: Apply to area pain up to 4 times daily for anti-inflammatory and pain relief No Action thyroid (pork) [[place] Thyroid] 90 mg tablet 90 mg PO DAILY Qty: 90 5RF levetiracetam 500 mg tablet 500 mg PO BID Qty: 120 0RF montelukast 10 mg tablet 10 mg PO DAILY Qty: 90 1RF (DME) Disabled Parking Permit See Rx Instructions .Route .MEDSUPPLY Qty: 1 0RF Rx Instructions: As directed Low dose naltrexone 4.5mg capsule 4.5 mg PO DAILY meloxicam 15 mg tablet 15 mg PO DAILY fexofenadine 180 mg tablet 180 mg PO DAILY Referrals: Shari Dorantes MD [Non-Staff] - Herve Coronado DO [Primary Care Provider] - Visit Report Forms: Patient Portal/API <Radha Chin DO - Last Filed: 01/07/22 11:59> Cosign ED Attending Jamieature Attestation: I was immediately available in the department for consultation. Documentation has been reviewed.
--- NOTE | 2022-01-06 16:13 | PC.NURSE ---
x2 RN attempted IV unsuccessfully, notified Crew WAREHOUSING TECHNICIAN, okay to do lab draw without IV, lab notified.
[2022-01-06 16:34] LABS: Influenza A - CEPHEID Flu A NEGATIVE (NEGATIVE); Influenza B - CEPHEID Flu B NEGATIVE (NEGATIVE); Respiratory Syncytial Virus Negative (Negative)
[2022-01-06 16:34] LABS: Add Manual Diff / Slide Review NO; Basophils Absolute Auto 100 /uL (0-100); Basophils Percent Auto 1.3 % (0-2); Eosinophils Absolute Auto 200 /uL (0-450); Eosinophils Percent Auto 2.7 % (2-4); Hematocrit 38.7 % (36-46); Hemoglobin 12.8 g/dL (12.0-16.0); Lymphocytes Absolute Auto 1800 /uL (1100-4500); Mean Corpuscular HGB Conc 33.1 % (30-36); Mean Corpuscular Volume 84.5 fL (80-100); Monocytes Absolute Auto 400 /uL (0-900); Monocytes Percent Auto 6.3 % (3-14); Neutrophils Absolute Auto 3300 /uL (1500-7000); Neutrophils Percent Auto 58.7 % (50-75); Platelet Count 307 X10^3/uL (150-400); Red Blood Cell Count 4.58 X10^6/uL (4.0-5.2); Red Cell Distribution Width 13.7 % (11.6-14.8); White Blood Cell Count 5.7 X10^3/uL (4.5-11.0)
[2022-01-06 16:37] LABS: INR 1.1 (0.9-1.3); Prothrombin Time 12.7 SECONDS (10.1-12.7)
[2022-01-06 16:40] LABS: PTT Partial Thromboplastin Tim 32 SECONDS (26-36)
[2022-01-06 16:41] LABS: COVID-19 CEPHEID 4-PLEX PCR Negative (Negative)
[2022-01-06 16:44] LABS: Alanine Aminotransferase 21 IU/L (<35); Albumin 4.4 g/dL (3.5-5.0); Albumin Globulin Ratio 1.3 (1.0-2.8); Alkaline Phosphatase 88 U/L (38-126); Aspartate Aminotransferase 23 IU/L (14-36); BUN Creatinine Ratio 14.3 (6-22); Bilirubin Total 0.6 mg/dL (0.2-1.3); Blood Urea Nitrogen 11 mg/dL (7-17); Carbon Dioxide 25 mmol/L (22-32); Chloride 103 mmol/L (98-107); Creatine Kinase 59 U/L (30-135); Estimated Glomerular Filt Rate > 60 mL/min (>60); Globulin 3.4 g/dL (1.7-4.1); Glucose 80 mg/dL (70-100); HEMOLYSIS < 15 (0-50); Lipase 61 U/L (23-300); Potassium 3.6 mmol/L (3.4-5.1); Sodium 138 mmol/L (137-145); Total Protein 7.8 g/dL (6.3-8.2)
[2022-01-06 16:45] LABS: C-Reactive Protein Quant 1.5 mg/dL (<1.0)
[2022-01-06 16:54] LABS: Troponin I < 0.012 ng/mL (0.01-0.034)
[2022-01-06] MEDS: KETOROLAC 30 MG/ML VIAL 15 MG IV (16:58)
[2022-01-06] MEDS: ACETAMINOPHEN 325 MG TABLET 975 MG PO (16:58)
[2022-01-06] MEDS: MORPHINE 10 MG/0.5 ML ORAL SYRINGE PO (16:59)
[2022-01-06 17:06] LABS: Erythrocyte Sedimentation Rate 10 MM/HR (0-20)
== END 2022-01-06 17:48 | disposition home or self-care (01) ==
PROVIDERS: Emergency Medicine; Emergency Provider Nurse Practitioner Critical Care Medicine; PCP Family Medicine
DX: M77.8 Other enthesopathies, not elsewhere classified (principal); R07.9 Chest pain, unspecified; Z20.822 Contact with and (suspected) exposure to COVID-19
CPT/HCPCS: 0241U; 71045; 80053; 82550; 83690; 83735; 84484; 85025; 85610; 85651; 85730; 86140; 93005; 96374; 99284; J1885